=== PATIENT | male | born 1975 | race Caucasian/White ===

== ENCOUNTER 2023-10-23 21:24 | Emergency (ER) | payer MEDICAID, SELFPAY ==
[2023-10-23] VITALS (23 sets, daily range): BP systolic 105–129; BP diastolic 60–99; PULSE 83–108; RESP 16–38; TEMP 36.8; O2SAT 95–99
[2023-10-23] MEDS: Ondansetron 4 MG/2 ML VIAL IVP (22:20)
[2023-10-23 22:25] LABS: Abs Immature Grans 0.08 10^3/uL (0.0-0.06); Absolute Basophil Count 0.03 10^3/uL (0.0-0.2); Absolute Eosinophil Count 0.02 10^3/uL (0.0-0.7); Absolute Lymphocyte Count 1.37 10^3/uL (1.2-3.4); Absolute Monocyte Count 1.37 10^3/uL (0.1-0.8); Basophils % 0.2 %; Eosinophils % 0.1 %; HCT 43.1 % (40.0-50.0); HGB 14.8 g/dL (13.5-17.5); Immature Grans % 0.5 %; Lymphocytes % 8.1 %; MCH 28.1 pg (27.0-33.0); MCHC 34.3 % (32.0-36.0); MCV 82 fL (80-95); MPV 10.6 fL (8.0-11.0); Monocytes % 8.1 %; Platelet Count 319 10^3/uL (130-400); RBC 5.27 10^6/uL (4.36-5.78); RDW 14.4 % (11.8-14.1); RDW-SD 41.8 fL; WBC 16.96 10^3/uL (4.4-10.8)
[2023-10-23 22:26] LABS: Absolute Neutrophil Count 14.08 10^3/uL (1.2-6.7)
[2023-10-23] MEDS: Lactated Ringers 1,000 ML 1000 ML IV (22:32)
[2023-10-23 22:48] LABS: ALT 38 U/L (16-63); AST 24 U/L (15-37); Albumin 3.3 g/dL (3.4-5.0); Alkaline Phosphatase 93 U/L (46-116); BUN 17 mg/dL (7-18); Bilirubin, Total 0.53 mg/dL (0.2-1.0); CREATININE 1.2 mg/dL (0.70-1.30); Calcium 10.3 mg/dL (8.5-10.1); Chloride 95 mmol/L (98-107); Estimated GFR 75.53 (mL/min/1.73m2); Glucose 153 mg/dL (74-106); Magnesium 2.2 mg/dL (1.8-2.4); Potassium 3.2 mmol/L (3.5-5.1); Sodium 137 mmol/L (136-145); Total Protein 10.4 g/dL (6.4-8.2)
[2023-10-23 22:52] LABS: Salicylate < 2.8 mg/dL (<2.8)
[2023-10-23 22:55] LABS: Acetaminophen < 2 ug/mL (10-30)
[2023-10-23 23:01] LABS: ETHANOL BLOOD < 3.0 mg/dL (<10)
[2023-10-24] MEDS: Potassium Chloride 20 MEQ TABCR 40 MEQ PO (00:41)
--- NOTE | 2023-10-24 00:42 | ED.GENADUL_ITS ---
Discharge Plan Disposition Patient Disposition: Home Condition: Stable Discharge Details Clinical Impression: Opioid use disorder, Hypokalemia, Cellulitis Primary Care Provider: Luis Winston ED Provider: Elke Woodson Home Meds and New Rx's Prescriptions: No Action No Known Home Meds Discharge Instructions Instructions: Drug Misuse and Addiction (DC), Cellulitis (Skin Infection), Adult ED Additional Instructions: You were seen in the emergency department today for opioid use disorder and dehydration. In our department you have a full physical examination performed, and received fluids and potassium supplementation. We discussed various options for sobriety maintenance, and at this time we recommend that you contact [facility] at [phone]. You do have evidence of cellulitis, a skin infection, for which we provided you with Bactrim and Keflex. Please take these medications as prescribed until they are gone, even if you start to feel better. Please follow-up with your outpatient providers with any concerns, and return to the emergency department with fever chills, shortness of breath, chest pain, or any other symptoms that cause you concern. Thank you for allowing us to be part of your care. HPI General Date/Time Provider Initiated Documentation: 10/23/23 21:27 . Limitations to Documentation: no limitations . Information obtained by: patient and old records reviewed . HPI Narrative: MDM: This is a 48-year-old male patient with past medical history significant for opioid use disorder presenting for evaluation for withdrawal syndrome. My differential includes but is not limited to withdrawal syndrome, considered toxic exposure, dehydration, metabolic and electrolyte derangement, kidney injury, liver injury, anemia. I considered infection, most likely skin and soft tissue including cellulitis, abscess. The patient has no evidence on his physical examination to increase my concern for endocarditis, and is without fever or hypotension to significantly increase my concern for bacteremia or sepsis. I did have a extended shared decision-making conversation with the patient regarding sobriety maintenance resources, and the patient is strongly against initiation of any medication assisted therapy given his concern about being hooked on Suboxone. He is most concerned about dehydration, and we will provide him with IV fluids, and obtain laboratory studies to include CBC, CMP, serum tox screen. ED Course: Laboratory studies show a leukocytosis to 16 with no anemia or thrombocytopenia. Chemistry panel with some hypokalemia which was repleted orally, no kidney injury or liver dysfunction, and the serum tox screen is negative. The patient declined to provide urine and given the compelling skin and soft tissue as the etiology of his leukocytosis I do not feel that it is a necessity in this situation. We did reach out to [facility] on-call advocate, and unfortunately did not receive a call back x 2 pages. I provided the patient with their phone number and recommended that he call them in the morning to discuss sobriety maintenance resources that would be consistent with his goals for his care. I provided the patient with complete courses of Bactrim and Keflex to be taken for his cellulitis. The patient understands that he should follow-up with his primary care provider in the next few days to discuss this visit and any symptoms that change, worsen, or persist. Their care was provided for harm reduction. At this time, the patient has had a full medical evaluation and is safe for d ischarge to home. They are hemodynamically stable, ambulatory, and tolerating PO. They are understanding of the follow-up plan and return precautions. They left our facility without incident. Elke Woodson MD HPI: This is a 48-year-old male patient presenting for evaluation for withdrawal. The patient reports that he is detoxing from fentanyl, which he uses intravenously, last used 2 days ago. States that he wants to quit fentanyl and was looking for some assistance, but does not want to use any medication such as Suboxone to do so. He states that he has used these in the past and had difficulty detox syndromes from the Suboxone. He states that he is experiencing nausea, vomiting, body aches he has not been eating and drinking normally for him, states that he has some skin infection areas that he popped in the outside environment, has not taken any antibiotics for them. Currently residing at a friend's house but is concerned for his housing stability. Denies suicidal or h omicidal ideation. Exam: Gen: Awake and alert, appears uncomfortable HEENT: Non-icteric sclera, pupils equal and reactive at 4 mm Neck: Supple, no meningismus Lungs: No apparent respiratory distress, normal respiratory effort., Lung sounds clear CV: Appears well perfused, heart with tachycardic rate and rhythm with no murmurs auscultated, Abdomen: Non-distended, soft MSK: Moves 4 extremities without apparent limitation in ROM Skin: Visualized skin without rashes, cyanosis. Extensive injection boone, bilateral anterior axillary regions with cellulitis and open wounds consistent with drained abscesses in the outpatient environment, no fluctuance appreciated on this provider's examination but he does have redness and induration. Neuro: Normal Gait, no obvious focal deficits or facial asymmetry. Speaks in full, clear sentences. Psych: Appropriate for situation. Related Data Home Medications ?Medication ?Instructions ?Recorded ?Confirmed Unknown [No Known Home Meds] 06/18/14 10/23/23 Allergies Allergy/AdvReac Type Severity Reaction Status Date / Time No Known Allergies Allergy Unverified 06/18/14 10:44 General Stated Complaint: DrugWithdr/MAT MANUEL: 3 Course Vital Signs Vital signs: Vital Signs Temperature 36.8 C 10/23/23 21:20 Pulse 105 H 10/23/23 21:20 Respiratory Rate 20 10/23/23 21:20 Blood Pressure 117/99 H 10/23/23 21:20 Pulse Oximetry 99 10/23/23 21:20 Temperature 36.8 C 10/23/23 21:20 Temperature Source Tympanic 10/23/23 21:20 Pulse 83 10/23/23 23:16 Pulse 84 10/23/23 23:10 Respiratory Rate 16 10/23/23 23:10 Respiratory Effort Normal 10/23/23 21:23 Blood Pressure 123/91 H 10/23/23 23:16 Blood Pressure Mean 99 10/23/23 23:16 Blood Pressure Position Sitting 10/23/23 21:20 Pulse Oximetry 97 10/23/23 23:20 Oxygen Delivery Method Room Air 10/23/23 21:20 Oxygen Flow Rate 0 10/23/23 21:20 Lab/Test Results Lab/Test Results: Laboratory Tests Range/Units 10/23/23 10/23/23 22:10 22:24 WBC (4.4-10.8) 10^3/uL 16.96 H RBC (4.36-5.78) 10^6/uL 5.27 Hgb (13.5-17.5) g/dL 14.8 Hct (40.0-50.0) % 43.1 MCV (80-95) fL 82 MCH (27.0-33.0) pg 28.1 MCHC (32.0-36.0) % 34.3 RDW (11.8-14.1) % 14.4 H Plt Count (130-400) 10^3/uL 319 MPV (8.0-11.0) fL 10.6 Immature Gran % % 0.5 Neutrophils % % 83.0 Lymphocytes % % 8.1 Monocytes % % 8.1 Eosinophils % % 0.1 Basophils % % 0.2 Nucleated RBC % (0.0-0.3) % 0.0 Absolute Neutrophils (1.2-6.7) 10^3/uL 14.08 H Absolute Lymphocytes (1.2-3.4) 10^3/uL 1.37 Absolute Monocytes (0.1-0.8) 10^3/uL 1.37 H Absolute Eosinophils (0.0-0.7) 10^3/uL 0.02 Absolute Basophils (0.0-0.2) 10^3/uL 0.03 Sodium (136-145) mmol/L 137 Potassium (3.5-5.1) mmol/L 3.2 L Chloride (98-107) mmol/L 95 L Carbon Dioxide (21.0-32.0) mmol/L 32.0 Anion Gap (3-11) mmol/L 10.0 BUN (7-18) mg/dL 17 Creatinine (0.70-1.30) mg/dL 1.2 Est GFR (CKD-EPI 2020) (mL/min/1.73m2) 75.53 Glucose (74-106) mg/dL 153 H Calcium (8.5-10.1) mg/dL 10.3 H Magnesium (1.8-2.4) mg/dL 2.2 Total Bilirubin (0.2-1.0) mg/dL 0.53 AST (15-37) U/L 24 ALT (16-63) U/L 38 Alkaline Phosphatase (46-116) U/L 93 Total Protein (6.4-8.2) g/dL 10.4 H Albumin (3.4-5.0) g/dL 3.3 L Salicylates (<2.8) mg/dL < 2.8 Acetaminophen (10-30) ug/mL < 2 Ethyl Alcohol (<10) mg/dL < 3.0 Medical Decision Making Quality:SDOH Health Related Social Needs: No Data to Display PFSH All Active Problems (Updated 10/24/23 @ 00:47 by Elke Woodson MD) Cellulitis (Acute) Hypokalemia (Acute) Opioid use disorder (Acute) Social History Smoking/Tobacco Use Status: Current-Occasional Smoking risk assessment performed?: Yes Drug use: Current Sobriety Substance use type: opiates
[2023-10-24] MEDS: Sulfameth/Trimeth DS TAB 14 TAB PO (00:56)
[2023-10-24] MEDS: Cephalexin 500 MG CAP 14000 MG PO (00:56)
== END 2023-10-24 00:57 | disposition home or self-care (01) ==
PROVIDERS: Emergency Provider Emergency Medicine; PCP Family Medicine
DX: R11.2 Nausea with vomiting, unspecified (principal); R52 Pain, unspecified; F11.90 Opioid use, unspecified, uncomplicated; L03.111 Cellulitis of right axilla; L03.112 Cellulitis of left axilla; E87.6 Hypokalemia
CPT/HCPCS: 36415; 36573; 80053; 96361; 96374; 99284; 80320; 80329; 83735; 85025; 99283; J2405

== ENCOUNTER 2024-01-31 20:20 | Inpatient (IN) | payer MEDICAID, SELFPAY ==
[2024-01-31 20:23] VITALS: BP 138/97; PULSE 127; RESP 18; TEMP 36.9; O2SAT 96
--- NOTE | 2024-01-31 20:30 | DI.RAD_ITS ---
Exam(s) XR HUMERUS LT EXAM: XR HUMERUS LT CLINICAL HISTORY: ivda, cellulitis. TECHNIQUE: 2D digital imaging was performed of the left humerus. Two images were obtained. AP and lateral views were obtained. COMPARISON: No priors for comparison. FINDINGS: BONES: No acute fracture is present. No bony destructive lesion is seen. Visualized portion of elbow and shoulder joints are unremarkable. SOFT TISSUE: Normal. IMPRESSION: Unremarkable radiographs of the left humerus. DATA REPOSITORY: RADIATION DOSE DELIVERED:
--- NOTE | 2024-01-31 20:30 | DI.RAD_ITS ---
Exam(s) XR HUMERUS RT EXAM: XR HUMERUS RT CLINICAL HISTORY: ivda, cellulitis. TECHNIQUE: 2D digital imaging was performed of the right humerus. Two images were obtained. AP and lateral views were obtained. COMPARISON: No exams were available for comparison FINDINGS: BONES: No acute fracture is present. No bony destructive lesion is seen. Visualized portion of elbow and shoulder joints are unremarkable. SOFT TISSUE: Normal. IMPRESSION: Unremarkable radiographs of the right humerus. DATA REPOSITORY: RADIATION DOSE DELIVERED:
--- OUTSIDE RECORDS SUMMARY | 2024-01-31 20:30 | XMS_ITS | Clinical Summary ---
Author Organization [facility] Address [address] [place] [address] Care Team Providers Care Contract Technician Name Role Phone None, Provider Primary Care Provider Unavailabl e Allergies No known active allergies Medications buprenorphine-na loxone (SUBOXONE) 2-0.5 mg tablet, sublingual Place under the tongue daily. 8mg Active amoxicillin-clav ulanate (AUGMENTIN) 875-125 mg per tablet 11/20/2020 Active sulfamethoxazole -trimethoprim (BACTRIM/CO-TRIM OXAZOLE DS) 800-160 mg per tablet 11/20/2020 Active Social History Tobacco Use Types Packs/Day Years Used Date Smoking Tobacco: Never Assessed Sex and Gender Information Value Date Recorded Sex Assigned at Not on file Legal Sex Male 14:57 EDT Gender Identity Not on file Sexual Orientation Not on file Last Filed Vital Signs Vital Sign Reading Time Taken Comments Blood Pressure 116/72 12/19/2020 1605 EDT Pulse 98 12/19/2020 1605 EDT Temperature 36.7 ??C (98 ??F) 12/19/2020 1605 EDT sca nner Respiratory Rate 16 12/19/2020 1605 EDT Oxygen Saturation 99% 12/19/2020 1605 EDT Inhaled Oxygen Concentration - - Weight - - Height - - Body Mass Index - - Plan of Treatment Health Maintenance Due Date Last Done Comments Hepatitis C Screen 1975 Hepatitis B Vaccine (1 of 3 - 19+ 3-dose series) 05/05 COVID-19 Vaccine (2023- season) 2023 Insurance [employer]OS [employer] COMP Comp GL Care Teams Contract Technician Relationship Specialty Start Date End Date None, Provider PCP - General 11/19/20
--- OUTSIDE RECORDS SUMMARY | 2024-01-31 20:30 | XMS_ITS | Encounter Summary ---
Author Organization [facility] Address [address] [place] [address] Care Team Providers Care Development Mgr Name Role Phone None, Provider Primary Care Provider Unavailabl e Reason for Visit * Reason Onset Date Comments Appointment Related 12/29/2020 Encounter Details Date Type Department Care Team (Late st Contact Info) Description 12/29/2020 Telephone [facility] - [facility] [place] Occupational Medicine [facility] [address] [place] [address] Amanda Reddy PA-C [address] [place] [address] Appointment Related Social History Tobacco Use Types Packs/Day Years Used Date Smoking Tobacco: Never Assessed Sex and Gender Information Value Date Recorded Sex Assigned at Not on file Legal Sex Male 14:57 EDT Gender Identity Not on file Sexual Orientation Not on file documented as of this encounter Miscellaneous Notes * Telephone Encounter - Kim Hsu - 12/29/2020 1140 EDT LVM #1 to reschedule the appointment missed on 12/19/20. documented in this encounter Plan of Treatment Not on file documented as of this encounter Visit Diagnoses Not on filedocumented in this encounter Care Teams Development Mgr Relationship Specialty Start Date End Date None, Provider PCP - General 11/19/20 documented as of this encounter
--- OUTSIDE RECORDS SUMMARY | 2024-01-31 20:30 | XMS_ITS | Encounter Summary ---
Author Organization [facility] Address [address] [place] [address] Care Team Providers Care Concrete Handler Name Role Phone None, Provider Primary Care Provider Unavailabl e Reason for Visit * Reason Comments Letter for School/Work Encounter Details Date Type Department Care Team ([facility] st Contact Info) Description 12/19/2020 15:45 EDT Walk-In [facility] [address] [place] [address] Johanna Melgar PA-C [address] [place] [address] Abscess (Primary Dx) Social History Tobacco Use Types Packs/Day Years Used Date Smoking Tobacco: Never Assessed Sex and Gender Information Value Date Recorded Sex Assigned at Not on file Legal Sex Male 14:57 EDT Gender Identity Not on file Sexual Orientation Not on file documented as of this encounter Last Filed Vital Signs Vital Sign Reading Time Taken Comments Blood Pressure 116/72 12/19/2020 1605 EDT Pulse 98 12/19/2020 1605 EDT Temperature 36.7 ??C (98 ??F) 12/19/2020 1605 EDT sca nner Respiratory Rate 16 12/19/2020 1605 EDT Oxygen Saturation 99% 12/19/2020 1605 EDT Inhaled Oxygen Concentration - - Weight - - Height - - Body Mass Index - - documented in this encounter Patient Instructions * Patient Instructions* Johanna Melgar PA-C - 12/19/2020 15:45 EDT Return to full duty. Follow-up for elbow pain, increased swelling, redness or any worrisome symptoms. documented in this encounter Progress Notes * Terri Nava - 12/19/2020 1541 EDT CC/HPI: Patient injured his elbow 11/20 at work. He had surgery and now needs a letter to return to work. Covid Screening: In the last 72 hours, has the patient had: New or unusual cough, shortness of breath, new nasal congestion, sore throat, fever, chills, body aches, or new loss of taste or smell without a reasonable alternative diagnosis*? (If yes, assign patient to ARC schedule) NO In the past 14 days, has the patient had a confirmed close Covid exposure (<6ft for > 15mins in 24hr period)? NO In the past 14 days, has the patient returned from international travel? NO Is the patient fully Covid vaccinated? (If close exposure or international travel but fully vaccinated, remains NRC. If close exposure or international travel and unvaccinated, assign to ARC) NO *may be determined by RN or in discussion with available provider (COMMERCIAL TELLER's and CCA's can defer to Charge Nurse to complete triage when appropriate) PCP: Provider None * Johanna Melgar PA-C - 12/19/2020 1543 EDT [facility] Chief Complaint(s): Letter for School/Work HPI: This is a 45yo male who presents to requesting a note to return to work. The patient is s/p incision and drainage right elbow abscess on 11/22. He was referred to occupational medicine and has missed X2 appointments stating it is too hard for [place] to get [place] for [place]. He has been on light duty at work and feels he is able to return to full duty. Denies pain. States that elbow is chronically swollen. I have reviewed current problem list, current medications and allergies ROS: See HPI Review of Systems Constitutional: Negative for chills and fever. Objective: Examination: Vitals: BP 116/72 (BP Cuff Location: Left arm, BP Patient Position: Sitting, BP Cuff Sizes: Adult, long) Pulse 98 Temp 36.7 ??C (98 ??F) Comment: scanner Resp 16 SpO2 99% Physical Exam Vitals and nursing note reviewed. HENT: Head: Normocephalic and atraumatic. Musculoskeletal: Comments: Examination of the right elbow reveals a small papule antecubital fossa without tenderness. No surrounding erythema. Mild edema of the medial elbow - reportedly chronic. FROM. Distal sensation intact. 2+radial pulse. Skin: General: Skin is warm and dry. Neurological: Mental Status: He is alert and oriented to person, place, and time. Procedures Assessment & Plan: 1. Abscess 45yo male s/p I&D right antecubital abscess in the ED on 11/19 returns to requesting a note to return to full duty at work. He was previously referred to occupational medicine for this clearance, however has missed two appointments and reports that it is just too hard to get to [place]. I have cleared the patient to return to full duty with strict instructions to follow-up for a recurrence of the symptoms. See patient instructions. Questions and concerns were answered. Patient expressed understanding of plan. documented in this encounter Plan of Treatment Not on file documented as of this encounter Visit Diagnoses Diagnosis Abscess- Primary Cellulitis and abscess of unspecified site documented in this encounter Care Teams Concrete Handler Relationship Specialty Start Date End Date None, Provider PCP - General 11/19/20 documented as of this encounter
--- OUTSIDE RECORDS SUMMARY | 2024-01-31 20:30 | XMS_ITS | Encounter Summary ---
Author Organization [facility] Address [address] [place] [address] Care Team Providers Care Flask Handler Name Role Phone None, Provider Primary Care Provider Unavailabl e Encounter Details Date Type Department Care Team (Late st Contact Info) Description 11/19/2020 Results Only [facility] - Main [address] [address] Willian Chaudhry PA-C [address] [place] [phone] Social History Tobacco Use Types Packs/Day Years Used Date Smoking Tobacco: Never Assessed Sex and Gender Information Value Date Recorded Sex Assigned at Not on file Legal Sex Male 14:57 EDT Gender Identity Not on file Sexual Orientation Not on file documented as of this encounter Plan of Treatment Not on file documented as of this encounter Procedures Procedure Name Priority Date/Time Associated Diagnosis Comments ROUTINE CULTURE - [facility] Routine 18:25 EDT BLOOD CULTURE - [facility] Routine 11/19/2020 17:56 EDT COMPLETE BLOOD COUNT WITH DIFFERENTIAL (AUTO) Routine 11/19/2020 16:44 EDT C REACTIVE PROTEIN Routine 11/19/2020 16 :43 EDT COMPREHENSIVE METABOLIC PANEL (CMP) Routine 11/19/2020 16:43 EDT BLOOD CULTURE - [facility] Routine 11/19/2020 16:30 EDT LACTIC ACID SEPSIS REFLEX - CV Routine 11/19/2020 16:20 EDT documented in this encounter Results * ROUTINE CULTURE - [facility] (11/19/2020 18:25 EDT) KLEB PHEUMONIAE SSP - CV KLEB PNEUMONIAE SSP PNEUMONIAE 11/22/2020 7:52 EDT [facility] QUANT - CV FEW 11/22/2020 7:52 EDT [facility] USUAL SKIN NICHOLE - CV USF 11/22/2020 7:52 EDT [facility] QUANT - [facility] MODERATE 11/22/2020 7:52 EDT [facility] Arm 11/19/2020 18:2 5 EDT 11/19/2020 19:04 EDT Comment:RAR Narrative [facility] - 11/22/2020 7:52 EDT Swab Source/Specimen Description: right ac abscess Organism Antibiotic Method Susceptibility Kleb pneumoniae ssp pneumoniae Ampicillin Sulbactam GRAM NEGATIVE SUSCEPTIBILITY - [facility] 4: Susceptible Kleb pneumoniae ssp pneumoniae Ampicillin GRAM NEGATIVE SUSCEPTIBILITY - [facility] 16: Resistant Kleb pneumoniae ssp pneumoniae Amoxicillin Clavulanic acid GRAM NEGATIVE SUSCEPTIBILITY - [facility] 8: Susceptible Kleb pneumoniae ssp pneumoniae Ceftriaxone ([facility] Conversion) GRAM NEGATIVE SUSCEPTIBILITY - [facility] <=1: Susceptible Kleb pneumoniae ssp pneumoniae Ciprofloxacin GRAM NEGATIVE SUSCEPTIBILITY - [facility] <=0.25: Susceptible Kleb pneumoniae ssp pneumoniae Cefepime GRAM NEGATIVE SUSCEPTIBILITY - [facility] <=1: Susceptible Kleb pneumoniae ssp pneumoniae Ertapenem GRAM NEGATIVE SUSCEPTIBILITY - [facility] <=0.5: Susceptible Kleb pneumoniae ssp pneumoniae Gentamicin GRAM NEGATIVE SUSCEPTIBILITY - [facility] <=1: Susceptible Kleb pneumoniae ssp pneumoniae Imipenem GRAM NEGATIVE SUSCEPTIBILITY - [facility] <=0.25: Susceptible Kleb pneumoniae ssp pneumoniae Levofloxacin GRAM NEGATIVE SUSCEPTIBILITY - [facility] <=0.12: Susceptible Kleb pneumoniae ssp pneumoniae Piperacillin Tazobactam GRAM NEGATIVE SUSCEPTIBILITY - [facility] <=4: Susceptible Kleb pneumoniae ssp pneumoniae Trimethoprim-Sulfameth oxazole GRAM NEGATIVE SUSCEPTIBILITY - [facility] <=20: Susceptible Kleb pneumoniae ssp pneumoniae Tobramycin GRAM NEGATIVE SUSCEPTIBILITY - [facility] <=1: Susceptible Comment:R ARM INJ? us Willian Hare PA-C CHEMISTRY & BLOOD GAS ORDERABLES Edited Result - Final Performing Organization Address City/[facility]/ZIP Co de Phone Number [facility] [address] [place] [address] * BLOOD CULTURE - [facility] (11/19/2020 17:56 EDT) BLOOD CULTURE - [facility] 11/25/2020 10:48 EDT [facility] BLOOD CULTURE - [facility] NO GROWTH AT 5 DAYS 11/25/2020 10:48 EDT [facility] Blood 11/19/2020 17:5 6 EDT 11/19/2020 17:56 EDT Comment:PERIP us Willian Hare PA-C CHEMISTRY & BLOOD GAS ORDERABLES Edited Result - Final Performing Organization Address [facility] Co de Phone Number [facility] [address] [place] [phone] * (ABNORMAL) COMPLETE BLOOD COUNT WITH DIFFERENTIAL (AUTO) (11/19/2020 16:44 EDT) Pathologist [facility] ABSOLUTE NEUTROPHIL COUN - [facility] 10.9(H) 2.2 - 8.85 10e3/uL 11/19/2020 17:01 EDT [facility] BASO # - [facility] 0.03 0.01 - 0.11 10e/uL [facility]2020 [facility] 0 0 - 2 % 11/19/2020 17:01 EDT [facility] EOS # - [facility] 0.12 0.03 - 0.61 10e3/ul 11/19/2020 17:01 EDT [facility] EOS % - [facility] 1 0 - 5 % 11/19/2020 17:01 EDT [facility] GRAN % - [facility] 85.1(H) 40 - 80 % [facility] HEMAT[facility]IT - [facility] 36.3(L) 39.5 - 50.2 % 11/19/2020 17:01 EDT [facility] HEMOGLOBIN - CV 12.1(L) 13.8 - 17.3 g/dl 11/19/2020 17:01 [facility] IG# - [facility] 0.05 0 - 0.7 10e3/uL 11/19/2020 17:01 [facility] IG% - [facility] 0.4 0 - 0.9 % 11/19/2020 17:01 [facility] LYMPH # - [facility] 0.8(L) 1.09 - 3.3 10e3/ul 11/19/2020 17:01 [facility] LYMPH% - [facility] 6.1(L) 20 - 40 % 11/19/2020 17:01 [facility] MEAN CORPUSCULAR HGB - [facility] 28.4 27.6 - 33.0 pg 11/19/2020 17:01 [facility] MEAN CORPUSCULAR HGB CONC - [facility] 33.3 32.8 - 36.4 g/dL 11/19/2020 17:01 [facility] MEAN CELL VOLUME - [facility] 85.2 81 - 95 fl 11/19/2020 17:01 [facility] MONO # - [facility] 0.9(H) 0.1 - 0.8 10e3/uL 11/19/2020 17:01 [facility] MONO% - [facility] 7.3 0 - 12 % 11/19/2020 17:01 [facility] PLATELET COUNT 226 141 - 377 10e3/ul 11/19/2020 17:01 [facility] RED BLOOD COUNT - [facility] 4.26(L) 4.36 - 5.78 10e6/ul 11/19/2020 17:01 [facility] RED CELL DISTRI WIDTH - [facility] 12.8 <14.2 % 11/19/2020 17:01 [facility] WHITE BLOOD COUNT - [facility] 12.8(H) 4.0 - 10.4 10e3/ul 11/19/2020 17:01 [facility] 11/19/2020 16:4 4 EDT 11/19/2020 16:44 EDT us Willian Chaudhry PA-C HEMATOLOGY & PF4 ORDERABLES Yenni l Result [facility] [address] [place] [address] * (ABNORMAL) C REACTIVE PROTEIN (11/19/2020 16:43 EDT) Pathologist [facility] C-Reactive Protein 82.1(H) <10.0 mg/L 11/19/2020 17:00 EDT [facility] 11/19/2020 16:4 3 EDT 11/19/2020 16:43 EDT us Willian MAURICE-C CHEMISTRY & BLOOD GAS ORDERABLES Final Result Performing Organization Address [facility] Co de Phone Number [facility] [address] [place] [address] * (ABNORMAL) COMPREHENSIVE METABOLIC PANEL (CMP) (11/19/2020 16:43 EDT) Pathologist [facility] Albumin % 3.4 3.4 - 4.9 g/dL 11/19/2020 17:21 EDT [facility] ALKALINE PHOSPHATASE - [facility] 67 38 - 126 U/L 11/19/2020 17:21 EDT [facility] BILIRUBIN TOTAL 0.4 0.2 - 1.3 mg/dL 11/19/2020 17:21 EDT [facility] BUN - [facility] 7(L) 10 - 26 mg/dL 11/19/2020 17:21 EDT [facility] CALCIUM - [facility] 8.1(L) 8.5 - 10.5 mg/dL 11/19/2020 17:00 EDT [facility] Chloride 99 96 - 110 mmol/L 11/19/2020 17:00 EDT [facility] CO2 Total 24 21 - 32 mEq/L [facility]2020 [facility]ATIN[facility] 0.59(L) 0.66 - 1.25 mg/dL 11/19/2020 17:00 EDT [facility] eGFR >60 11/19/2020 17:00 EDT [facility] Comment: Chronic renal impairment is defined as GFR <60 Multiply result by 1.210 for patients. Anion Gap 10 0 - 18 11/19/2020 17:00 EDT [facility] GLUCOSE - [facility] 107(H) 70 - 100 mg/dL 11/19/2020 17:00 EDT [facility] Potassium 3.9 3.5 - 5.0 mEq/L 11/19/2020 17:21 EDT [facility] Sodium 133(L) 136 - 145 mEq/L 11/19/2020 17:00 EDT [facility] TOTAL PROTEIN - [facility] 6.8 6.2 - 8.2 gm/dL 11/19/2020 17:21 EDT [facility] SGOT/AST - [facility] 20 17 - 59 U/L 11/19/2020 17:21 EDT [facility] SGPT/ALT - [facility] 18 0 - 50 U/L 17:00 EDT [facility] 11/19/2020 16:4 3 EDT 11/19/2020 16:43 EDT us Willian Hare PA-C CHEMISTRY & BLOOD GAS ORDERABLES Final Result Performing Organization Address City/State/[facility] Co de Phone Number [facility] [address] [place] [phone] * BLOOD CULTURE - [facility] (11/19/2020 16:30 EDT) BLOOD CULTURE - [facility] 11/25/2020 10:48 EDT [facility] BLOOD CULTURE - [facility] NO GROWTH AT 5 DAYS 11/25/2020 10:48 EDT [facility] Blood 11/19/2020 16:3 0 EDT 11/19/2020 16:55 EDT Comment:PERIP us Willian Hare PA-C CHEMISTRY & BLOOD GAS ORDERABLES Edited Result - Final Performing Organization Address City/[facility]/ZIP Co de Phone Number [facility] [address] [place] [address] * LACTIC ACID SEPSIS REFLEX - [facility] (11/19/2020 16:20 EDT) LACTIC ACID - [facility] 0.7 <2.0 mmol/L 11/19/2020 16:46 EDT [facility] 11/19/2020 16:2 0 EDT 11/19/2020 16:30 EDT us Willian Chaudhry PA-C CHEMISTRY & BLOOD GAS ORDERABLES Final Result Performing Organization Address [facility] Co de Phone Number [facility] [address] [place] [address] documented in this encounter Visit Diagnoses Not on filedocumented in this encounter Care Teams Flask Handler Relationship Specialty Start Date End Date None, Provider PCP - General 11/19/20 documented as of this encounter
--- OUTSIDE RECORDS SUMMARY | 2024-01-31 20:30 | XMS_ITS | Encounter Summary ---
Author Organization [facility] Address [address] [place] [address] Care Team Providers Care Rotary Peel Oven Tender Name Role Phone None, Provider Primary Care Provider Unavailabl e Reason for Visit * Reason Comments Arm Swelling Encounter Details Date Type Department Care Team (Late st Contact Info) Description 11/19/2020 15:00 EDT Walk-In [facility] [address] [place], [place] [id number] Johanna Melgar PA-C [address] [place] [phone] Cutaneous abscess of right upper extremity (Primary Dx) Social History Tobacco Use Types Packs/Day Years Used Date Smoking Tobacco: Never Assessed Sex and Gender Information Value Date Recorded Sex Assigned at Not on file Legal Sex Male 14:57 EDT Gender Identity Not on file Sexual Orientation Not on file documented as of this encounter Last Filed Vital Signs Vital Sign Reading Time Taken Comments Blood Pressure 118/70 11/19/2020 1523 EDT Pulse 113 11/19/2020 1523 EDT Temperature 38.1 ??C (100.5 ??F) 11/19/2020 1523 EDT Respiratory Rate 20 11/19/2020 1523 EDT Oxygen Saturation 100% 11/19/2020 1523 EDT Inhaled Oxygen Concentration - - Weight - - Height - - Body Mass Index - - documented in this encounter Patient Instructions * Patient Instructions* Johanna Melgar PA-C - 11/19/2020 15:00 EDT Go directly to the ED for further evaluation. documented in this encounter Progress Notes * Da Basurto RN - 11/19/2020 1500 EDT CC/HPI: Patient reports two days of right arm swelling. Covid Screening: In the last 72 hours, has the patient had: New or unusual cough, shortness of breath, new nasal congestion, sore throat, fever, chills, body aches, or new loss of taste or smell without a reasonable alternative diagnosis*? (If yes, assign patient to ARC schedule) No In the past 14 days, has the patient had a confirmed close Covid exposure (<6ft for > 15mins in 24hr period)? No In the past 14 days, has the patient returned from international travel? No Is the patient fully Covid vaccinated? (If close exposure or international travel but fully vaccinated, remains NRC. If close exposure or international travel and unvaccinated, assign to ARC) Patient is not vaccinated Assessed patient's safety at home on 11/19/20. Patient reports that he feels safe at home. DA BASURTO RN 11/19/20 15:18 PCP: Provider None * Johanna Melgar PA-C - 11/19/2020 1500 EDT [facility] Chief Complaint(s): Arm Swelling HPI: This is a 45-year-old male who presents to express care reporting a large abscess of the right antecubital region that was noticed 2 days ago and has been worsening. Patient denies recent IV drug use. He did use a needle to puncture the area of swelling this morning and expressed a small amount of pus. Has had increased discomfort since doing this. Does report swelling of the forearm and hand. Has had a fever since last evening. Last took ibuprofen at noon today. Denies history of MRSA infection in the past. Denies chest pain or shortness of breath. I have reviewed current problem list, current medications and allergies ROS: Review of Systems Constitutional: Positive for fever. Negative for chills. Objective: Examination: Vitals: BP 118/70 Pulse (!) 113 Temp 38.1 ??C (100.5 ??F) (Skin) Resp 20 SpO2 100% Physical Exam Vitals and nursing note reviewed. Constitutional: General: He is not in acute distress. Appearance: He is ill-appearing. He is not toxic-appearing or diaphoretic. HENT: Head: Normocephalic and atraumatic. Cardiovascular: Rate and Rhythm: Regular rhythm. Tachycardia present. Heart sounds: Normal heart sounds. Pulmonary: Comments: tachypneic Musculoskeletal: Comments: Examination of the right upper extremity reveals a large area of erythematous swelling 5cm in size antecubital space. There is fluctuance and tenderness to palpation. No lymphangitic streaking. 2+radial pulse. Moderate edema from the elbow to the right hand. Decreased ROM of the elbow due to pain. Neurological: Mental Status: He is alert and oriented to person, place, and time. Procedures Assessment & Plan: 1. Cutaneous abscess of right upper extremity 45yo febrile, tachypneic, tachycardic male with large right antecubital abscess and moderate extremity edema. DDX includes abscess, DVT, sepsis. Will refer to the ED for further evaluation. ED chargeRN is notified. See patient instructions Questions and concerns were answered. Patient expressed understanding of plan. documented in this encounter Plan of Treatment Not on file documented as of this encounter Visit Diagnoses Diagnosis Cutaneous abscess of right upper extremity- Primary Cellulitis and abscess of upper arm and forearm documented in this encounter Historical Medications * This list may reflect changes made after this encounter. buprenorphine-nal oxone (SUBOXONE) 2-0.5 mg tablet, sublingual Place under the tongue daily. 8mg added in this encounter Care Teams Rotary Peel Oven Tender Relationship Specialty Start Date End Date None, Provider PCP - General 11/19/20 documented as of this encounter
--- OUTSIDE RECORDS SUMMARY | 2024-01-31 20:30 | XMS_ITS | Encounter Summary ---
Author Organization [facility] Address [address] [place] [address] Care Team Providers Care Reeler Operator Name Role Phone None, Provider Primary Care Provider Unavailabl e Encounter Details Date Type Department Care Team (Late st Contact Info) Description 11/19/2020 Results Only Imaging [facility] Radiology Results [address] [place] [address] Willian Chaudhry PA-C [address] [place] [phone] Social History Tobacco Use Types Packs/Day [...] Procedure Name Priority Date/Time Associated Diagnosis Comments CT UPPER EXTREMITY W WO CONTRAST 11/19/2020 18:41 EDT documented in this encounter Results * CT UPPER EXTREMITY W WO CONTRAST (11/19/2020 18:41 EDT) Anatomical Region Laterality Modality Upper Extremities Other 11/19/2020 18:4 0 EDT Narrative 11/19/2020 18:41 EDT ? EXAM: CAT SCAN/UPPER EXTREMITY WITH CONT. EX. D/ (1722) ? CLINICAL INFORMATION: ? right upper arm abscess ? PROCEDURE INFORMATION: ? Exam: CT Right Upper Extremity With Contrast, Elbow ? Exam date and time: 11/19/2020 4:14 PM ? Age: 45 years old ? Clinical indication: Swelling and other: Redness; Elbow; Right; ? Patient HX: Bb placed on bump - RT antecubital area; Additional ? info: Right upper arm abscess (elbow) ? TECHNIQUE: ? Imaging protocol: CT of the Right upper extremity with ? intravenous contrast was performed. Exam focused on the elbow. ? Radiation optimization: All CT scans at this facility use at ? least one of these dose optimization techniques: automated ? exposure control; mA and/or kV adjustment per patient size ? (includes targeted exams where dose is matched to clinical ? indication); or iterative reconstruction. ? Contrast material: OMNI 350; Contrast volume: 100 ml; Contrast ? route: INTRAVENOUS (IV); ? COMPARISON: ? No relevant prior studies available. ? FINDINGS: ? Bones/joints: Normal. No acute fracture or dislocation. ? Soft tissues: ??There is a 4.2 x 5.3 cm diameter irregular shaped ? rim enhancing fluid collection containing small amount gas ? consistent with an abscess located within the antecubital fossa. ?This extends to the immediate subcutaneous surface posteriorly ? at the level of the elbow where a skin marker was placed. ??The ? brachial artery runs in close proximity to the deep margin of ? the abscess. ??No major blood vessels are seen between the skin ? and the area of the abscess closest to the BB. ??There is ? nonspecific edema within adjacent subcutaneous tissue. ? IMPRESSION: ? Large abscess of the antecubital fossa measuring approximately ? 4.2 x 5.3 cm as described above. ??Diffuse subcutaneous edema is ? also present which may indicate cellulitis. ? REPORT SIGNED IN OTHER VENDOR SYSTEM 11/19/2020 ?Reported By: Vito Tidwell MD ? CC: ? Transcribed Date/Time: 11/19/2020 (1840) ? Proposal Analyst: ? Printed Date/Time: 11/19/2020 (1840) ? PAGE 1 ? Signed Report ? Procedure Note Vito Tidwell MD - 11/19/2020 EXAM: CAT SCAN/UPPER EXTREMITY WITH CONT. EX. D/ (1722) CLINICAL INFORMATION: right upper arm abscess PROCEDURE INFORMATION: Exam: CT Right Upper Extremity With Contrast, Elbow Exam date and time: 11/19/2020 4:14 PM Age: 45 years old Clinical indication: Swelling and other: Redness; Elbow; Right; Patient HX: Bb placed on bump - RT antecubital area; Additional info: Right upper arm abscess (elbow) TECHNIQUE: Imaging protocol: CT of the Right upper extremity with intravenous contrast was performed. Exam focused on the elbow. Radiation optimization: All CT scans at this facility use at least one of these dose optimization techniques: automated exposure control; mA and/or kV adjustment per patient size (includes targeted exams where dose is matched to clinical indication); or iterative reconstruction. Contrast material: OMNI 350; Contrast volume: 100 ml; Contrast route: INTRAVENOUS (IV); COMPARISON: No relevant prior studies available. FINDINGS: Bones/joints: Normal. No acute fracture or dislocation. Soft tissues: There is a 4.2 x 5.3 cm diameter irregular shaped rim enhancing fluid collection containing small amount gas consistent with an abscess located within the antecubital fossa. This extends to the immediate subcutaneous surface posteriorly at the level of the elbow where a skin marker was placed. The brachial artery runs in close proximity to the deep margin of the abscess. No major blood vessels are seen between the skin and the area of the abscess closest to the BB. There is nonspecific edema within adjacent subcutaneous tissue. IMPRESSION: Large abscess of the antecubital fossa measuring approximately 4.2 x 5.3 cm as described above. Diffuse subcutaneous edema is also present which may indicate cellulitis. REPORT SIGNED IN OTHER VENDOR SYSTEM 11/19/2020 Reported By: Vito Tidwell MD CC: Transcribed Date/Time: 11/19/2020 (1840) Proposal Analyst: Printed Date/Time: 11/19/2020 (1840) PAGE 1 Signed Report Willian Chaudhry PA-C IMG CT ORDERABLES Final Result documented in this encounter Visit Diagnoses Not on filedocumented in this encounter Care Teams Reeler Operator Relationship Specialty Start Date End Date None, Provider PCP - General 11/19/20 documented as of this encounter
--- OUTSIDE RECORDS SUMMARY | 2024-01-31 20:30 | XMS_ITS | Referral Summary ---
Author Organization [facility] Address [address] [place] [address] Care Team Providers Care Hydrometeorology Teacher Name Role Phone None, Provider Primary Care [...] Mass Index - - Plan of Treatment Not on file Insurance [employer] [place] [address] [place] [address] [place] [address] Care Teams Hydrometeorology Teacher Relationship Specialty Start Date End Date None, Provider PCP - General 11/19/20
--- OUTSIDE RECORDS SUMMARY | 2024-01-31 20:30 | XMS_ITS | Encounter Summary ---
Author Organization [facility] Address [address] [place] [address] Care Team Providers Care [employer] Name Role Phone None, Provider Primary Care Provider Unavailabl e Reason for Visit * Reason Comments Other drain removal Encounter Details Date Type Department Care Team (Late st Contact Info) Description 11/22/2020 16:45 EDT Walk-In [facility] [address], [place] [id number] Lorna De La Fuente PA-C [address] [facility] [address] [place], [place] [id number] Abscess of arm, right (Primary Dx) Social History Tobacco Use Types Packs/Day Years Used Date Smoking Tobacco: Never Assessed Sex and Gender Information Value Date Recorded Sex Assigned at Not on file Legal Sex Male 14:57 EDT Gender Identity Not on file Sexual Orientation Not on file documented as of this encounter Last Filed Vital Signs Vital Sign Reading Time Taken Comments Blood Pressure 130/82 11/22/2020 1649 EDT Pulse 88 11/22/2020 1649 EDT Temperature 36.8 ??C (98.2 ??F) 11/22/2020 1649 EDT Respiratory Rate 18 11/22/2020 1649 EDT Oxygen Saturation 98% 11/22/2020 1649 EDT Inhaled Oxygen Concentration - - Weight - - Height - - Body Mass Index - - documented in this encounter Progress Notes * Magdalene Ball, RN - 11/22/2020 1645 EDT CC/HPI: Patient states he had cellulitis in elbow and needs a drain removed. Reports Saturday at [facility] Covid Screening: In the last 72 hours, has the patient had: New or unusual cough, shortness of breath, new nasal congestion, sore throat, fever, chills, body aches, or new loss of taste or smell without a reasonable alternative diagnosis*? (If yes, assign patient to ARC schedule) In the past 14 days, has the patient had a confirmed close Covid exposure (<6ft for > 15mins in 24hr period)? In the past 14 days, has the patient returned from international travel? Is the patient fully Covid vaccinated? (If close exposure or international travel but fully vaccinated, remains NRC. If close exposure or international travel and unvaccinated, assign to ARC) *may be determined by RN or in discussion with available provider (FRINGE MAKER's and CCA's can defer to Charge Nurse to complete triage when appropriate) PCP: Provider None * Lorna De La Fuente PA-C - 11/22/2020 1645 EDT [facility] Initial Visit Note Subjective: Chief Complaint(s): Other (drain removal) HPI: Misha Trent is a 45 y.o. year-old male that I am seeing in after a reported work-place injury. 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 paperwork ROS: Review of Systems Constitutional: Negative for fever. Skin: Patient here to have drain removed from where his abscess was I&D Objective: Examination: Vitals: oral temperature is 36.8 ??C (98.2 ??F). His blood pressure is 130/82 and his pulse is 88. His respiration is 18 and oxygen saturation is 98%. There is no height or weight on file to calculate BMI. Physical Exam Vitals reviewed. Constitutional: General: He is not in acute distress. Appearance: He is not ill-appearing. Cardiovascular: Rate and Rhythm: Normal rate. Pulmonary: Effort: Pulmonary effort is normal. No respiratory distress. Skin: Comments: Right antecubital fossa there is a pencot drain in place that is holding the 2 small incisions open to allow for more drainage, drain was removed with tweezers and suture scissors without complication Neurological: Mental Status: He is alert. Assessment & Plan: 1. Abscess of arm, right - AMB REFERRAL TO OCCUPATIONAL MEDICINE; Future Patient The reason for visit IS related to reported mechanism of injury. Patient was referred to occupational med to ensure complete resolution of the remaining wound, paperwork was scanned into patient chart, patient should keep area clean and dry, occupational med will resume care when scheduled, patient is to return to [facility] if any further redness or drainage increases, patient verbalized understanding and agrees to POC Procedures documented in this encounter Plan of Treatment Not on file documented as of this encounter Visit Diagnoses Diagnosis Abscess of arm, right- Primary Cellulitis and abscess of upper arm and forearm documented in this encounter Historical Medications * This list may reflect changes made after this encounter. Medication Sig Dispense Quantity Refills Last Filled Start D ate End Date sulfamethoxazole-trimet hoprim (BACTRIM/CO-TRIMOXAZOLE DS) 800-160 mg per tablet 11/20/2020 amoxicillin-clavulanate (AUGMENTIN) 875-125 mg per tablet 11/20/2020 added in this encounter Care Teams [employer] Relationship Specialty Start Date End Date None, Provider PCP - General 11/19/20 documented as of this encounter
[2024-01-31] MEDS: Lidocaine 1% Multi-Dose 50 ML VIAL IJ (21:46)
[2024-01-31 22:05] LABS: Abs Immature Grans 0.12 10^3/uL (0.0-0.06); Absolute Basophil Count 0.07 10^3/uL (0.0-0.2); Absolute Eosinophil Count 0.26 10^3/uL (0.0-0.7); Absolute Lymphocyte Count 2.15 10^3/uL (1.2-3.4); Absolute Monocyte Count 1.08 10^3/uL (0.1-0.8); Absolute Neutrophil Count 14.65 10^3/uL (1.2-6.7); Basophils % 0.4 %; Eosinophils % 1.4 %; HCT 35.4 % (40.0-50.0); HGB 11.3 g/dL (13.5-17.5); Immature Grans % 0.7 %; Lymphocytes % 11.7 %; MCH 26.2 pg (27.0-33.0); MCHC 31.9 % (32.0-36.0); MCV 82 fL (80-95); MPV 9.9 fL (8.0-11.0); Monocytes % 5.9 %; Neutrophils % 79.9 %; Platelet Count 385 10^3/uL (130-400); RBC 4.32 10^6/uL (4.36-5.78); RDW 14.2 % (11.8-14.1); RDW-SD 42.4 fL; WBC 18.34 10^3/uL (4.4-10.8)
[2024-01-31 22:06] LABS: ESR 78 mm/hr (0-15)
--- NOTE | 2024-01-31 22:15 | DI.RAD_ITS ---
Exam(s) XR CHEST 2V PA LATERAL EXAM: XR CHEST 2V PA LATERAL CLINICAL HISTORY: right rib pain, fall TECHNIQUE: 2D digital imaging was performed of the chest. Three images were obtained. PA and later al views were obtained. COMPARISON: No exams were available for comparison FINDINGS: MEDIASTINUM: Normal. HEART: Normal. PULMONARY VASCULATURE: Normal. LUNGS: The lungs are hyperinflated with flattened diaphragms suggesting underlying COPD. No focal co nsolidations. PLEURAL SPACE: No pleural effusion or pneumothorax. BONE:Within normal limits for the patient's age. OTHER FINDINGS:Normal. IMPRESSION: No acute pulmonary findings. DATA REPOSITORY: RADIATION DOSE DELIVERED:
--- NOTE | 2024-01-31 22:18 | W.ED.GENAD ---
Discharge Plan Disposition Patient Disposition: Admit to [facility] Discharge Details Chief Complaint: Cellulitis Clinical Impression: Cellulitis and abscess of upper extremity, Sepsis, Opioid use disorder, Active intravenous drug use Admit Date/Time: 01/31/24 23:14 Admit Provider: Андрей Peters Attending Provider: Андрей Peters Primary Care Provider: Unknown,Unknown ED Provider: Alyssia Owusu Discharge Data Discharge Date/Time-TO BE ENTERED AT DEPARTURE: 01/31/24 23:56 HPI General Date/Time Provider Initiated Documentation: 01/31/24 20:23. HPI Narrative: This 48-year-old male presents with bilateral arm abscesses and cellulitis with history of IV drug abuse. Last used fentanyl yesterday. Is interested in detox and resources. He has not been set up with community connections or [facility] in the past and would very much like to be connected with these resources. He denies any fever or chills. He states he drained abscesses in his left arm yesterday. He denies history of HIV or hepatitis C. He denies any chest pain or shortness of breath. States he has a history of cellulitis in the past. Related Data Home Medications ?Medication ?Instructions ?Recorded ?Confirmed Unknown [No Known Home Meds] 06/18/14 01/31/24 Allergies Allergy/AdvReac Type Severity Reaction Status Date / Time No Known Allergies Allergy Unverified 01/31/24 20:29 General Stated Complaint: Cellulitis MANUEL: 3 Exam Narrative Exam Narrative: Alert and oriented 48-year-old male in no acute distress, sinus tachycardia, pupils equal round reactive to light and accommodation, lungs clear to auscultation, sinus tachycardia, bilateral upper extremities with multiple abscesses and excoriations with drainage, cellulitis extensively to the left upper extremity with draining abscesses, right upper extremity with axillary abscess and mid humeral abscess. Neurovascularly intact, no Janeway lesions. No murmur. Course Vital Signs Vital signs: Vital Signs Temperature 36.9 C 01/31/24 20:23 Pulse 127 H 01/31/24 20:23 Respiratory Rate 18 01/31/24 20:23 Blood Pressure 138/97 H 01/31/24 20:23 Pulse Oximetry 96 01/31/24 20:23 Temperature 36.9 C 01/31/24 20:23 Pulse 127 H 01/31/24 20:23 Respiratory Rate 18 01/31/24 20:23 Respiratory Effort Normal 01/31/24 20:27 Blood Pressure 138/97 H 01/31/24 20:23 Pulse Oximetry 96 01/31/24 20:23 Oxygen Delivery Method Room Air 01/31/24 20:23 Oxygen Flow Rate 0 01/31/24 20:23 Pain Level 7 01/31/24 20:23 Lab/Test Results Lab/Test Results: 01/31/24 21:53 Blood Blood Culture - Pending 01/31/24 21:44 Arm - Right Upper Wound Culture - Pending 01/31/24 21:44 Arm - Right Upper Gram Stain - Pending 01/31/24 20:34 Blood Blood Culture - Pending Laboratory Tests Range/Units 01/31/24 01/31/24 20:38 21:53 WBC (4.4-10.8) 10^3/uL 18.34 H RBC (4.36-5.78) 10^6/uL 4.32 L Hgb (13.5-17.5) g/dL 11.3 L Hct (40.0-50.0) % 35.4 L MCV (80-95) fL 82 MCH (27.0-33.0) pg 26.2 L MCHC (32.0-36.0) % 31.9 L RDW (11.8-14.1) % 14.2 H Plt Count (130-400) 10^3/uL 385 MPV (8.0-11.0) fL 9.9 Immature Gran % % 0.7 Neutrophils % % 79.9 Lymphocytes % % 11.7 Monocytes % % 5.9 Eosinophils % % 1.4 Basophils % % 0.4 Nucleated RBC % (0.0-0.3) % 0.0 Absolute Neutrophils (1.2-6.7) 10^3/uL 14.65 H Absolute Lymphocytes (1.2-3.4) 10^3/uL 2.15 Absolute Monocytes (0.1-0.8) 10^3/uL 1.08 H Absolute Eosinophils (0.0-0.7) 10^3/uL 0.26 Absolute Basophils (0.0-0.2) 10^3/uL 0.07 ESR (0-15) mm/hr 78 H VBG Lactate (0.6-1.4) mmol/L 2.0 H HIV 1&2 Ag/Ab, 4th Gen Cancelled HIV 1&2 Antibody Rapid Cancelled Procedures Abscess I/D Site: Upper Extremity Side (if applicable): Right Local Anesthetic: Lidocaine 1% Amount of anesthesia used (mL): 8 Technique: Incised with #11 Blade Amount of fluid expressed (mL): 20 Irrigation: Yes Packing used?: None Complications: Pain Medical Decision Making 48-year-old male presenting meeting sepsis criteria with tachycardia, and source of cellulitis and abscesses, and leukocytosis. Will initiate vancomycin, high suspicion for MRSA. Elevated liver function test likely consistent with acute hepatitis. Hepatitis profile ordered. HIV ordered given history of IV drug use. Patient may benefit from a surgical consultation in the morning. At this time abscesses have been drained and the remainder are all draining. Patient will require IV antibiotics and close monitoring. He is homeless and is requesting detox, his last use of fentanyl was yesterday. He states that he would like to receive medication for withdrawal in the hospital, and he would prefer methadone he had a horrible withdrawal experience with Suboxone last time this was attempted. He is hoping for [facility] for them to see him in the emergency department to establish. Patient has been calm, cooperative, insightful, alert and oriented and of decisional capacity throughout this encounter. He is willing to stay in the hospital but would like to be treated for withdrawal. He suspects he will go into withdrawal either tonight or tomorrow. At this time he feels okay per patient. There is no evidence of endocarditis clinically. Pending wound culture vancomycin was ordered. Patient was about to go to x-ray and said that he fell and was having some right chest wall pain. I did order chest x-ray for further evaluation. Quality:[facility] Health Related Social Needs: Health related social needs housing instability, housed, with risk of homelessness(Z59.811), food insecurity(Z59.41), transportation insecurity(Z59.82), material hardship(utilities)(Z59.87) [facility] All Active Problems (Updated 02/03/24 @ 08:49 by KAYLENE Moore) Opioid use disorder (Chronic) Active intravenous drug use (Chronic) Sepsis (Acute) Cellulitis and abscess of upper extremity (Acute) Social History Smoking/Tobacco Use Status: Current-Occasional Smoking risk assessment performed?: Yes Alcohol Intake: former Drug use: Current Sobriety Substance use type: opiates Housing: homeless Do you feel safe at home: Yes Do you feel safe in your relationship?: Yes
[2024-01-31 22:20] LABS: ALT 82 U/L (16-63); AST 76 U/L (15-37); Albumin 1.9 g/dL (3.4-5.0); Alkaline Phosphatase 92 U/L (46-116); Anion Gap 8.7 mmol/L (3-11); BUN 14 mg/dL (7-18); Bilirubin, Total 0.13 mg/dL (0.2-1.0); C-Reactive Protein 7.98 mg/dL (<or=0.5); CO2 25.3 mmol/L (21.0-32.0); Chloride 105 mmol/L (98-107); Glucose 148 mg/dL (74-106); Sodium 139 mmol/L (136-145); Total Protein 8.6 g/dL (6.4-8.2)
--- NOTE | 2024-01-31 22:50 | DI.VRAD_ITS ---
PROCEDURE INFORMATION: Exam: XR Chest Exam date and time: 01/31/2024 10:30 PM Age: 48 years old Clinical indication: Other: Right rib pain, fall TECHNIQUE: Imaging protocol: Radiologic exam of the chest. Views: 2 views. COMPARISON: No relevant prior studies available. FINDINGS: Lungs: Unremarkable. No consolidation. Pleural spaces: Unremarkable. No pleural effusion. No pneumothorax. Heart/Mediastinum: Unremarkable. No cardiomegaly. Bones/joints: Unremarkable. IMPRESSION: No acute findings. Dictated and Authenticated by: Krish Lerma MD. Ordering:MITCH Cade MD
--- NOTE | 2024-01-31 22:51 | DI.VRAD_ITS ---
PROCEDURE INFORMATION: Exam: XR Right Humerus Exam date and time: 01/31/2024 10:33 PM Age: 48 years old Clinical indication: Other: Ivda, cellulitis TECHNIQUE: Imaging protocol: Radiologic exam of the right humerus. Views: 2 or more views. COMPARISON: CR XR CHEST 2V PA LATERAL 01/31/2024 10:30 PM FINDINGS: Bones/joints: Normal. Soft tissues: Normal. IMPRESSION: No acute findings. Dictated and Authenticated by: Krish Lerma MD. Ordering:MITCH Cade MD
--- NOTE | 2024-01-31 22:51 | DI.VRAD_ITS ---
PROCEDURE INFORMATION: Exam: XR Left Humerus Exam date and time: 01/31/2024 10:35 PM Age: 48 years old Clinical indication: Other: Ivda, cellulitis TECHNIQUE: Imaging protocol: Radiologic exam of the left humerus. Views: 2 or more views. COMPARISON: CR XR CHEST 2V PA LATERAL 01/31/2024 10:30 PM FINDINGS: Bones/joints: Normal. Soft tissues: Normal. IMPRESSION: No acute findings. Dictated and Authenticated by: Krish Lerma MD. Ordering:MITCH Cade MD
--- NOTE | 2024-01-31 22:58 | W.PM.HP.N ---
Date of service: 01/31/24 Time of Service: 22:58 Assessment and Plan Assessment and plan (1) Cellulitis and abscess of upper extremity: Start date: 01/31/24 Status: Acute Assessment and plan: This is a 48-year-old gentleman with long-term IV drug use mostly with fentanyl to his knowledge that he does use street drugs. He does want to stop using and does need some social help. He does have food stamp but no home presently. He is depending on friends. He will continue on IV vancomycin with blood cultures pending. Urine with urine culture if positive will be performed. He will have Toradol IV for severe pain and we will avoid continuing IV opioid analgesics. He will see drug rehab with case management to arrange this today. We should follow-up echocardiogram with elevated CRP and sepsis with his IV drug use and self incising abscesses with possibility of seeding of his tricuspid valve though there is no murmur. If his blood cultures are positive and he has evidence of vegetations on the tricuspid valve he will require up to 6 weeks of IV antibiotic therapy. He does need social security benefits interviewer to help with his homeless situation and hopefully stabilize his life. He is a full code. (2) Sepsis: Start date: 01/31/24 Status: Acute Assessment and plan: Blood cultures and continue IV antibiotic therapy with trending labs. Encourage oral intake. Qualifiers: Sepsis acute organ dysfunction status: without acute organ dysfunction Sepsis type: sepsis due to unspecified organism Qualified Code(s): A41.9 - Sepsis, unspecified organism (3) Active intravenous drug use: Status: Chronic Assessment and plan: Patient has chronic IV drug use with chronic abscesses. Concern for tricuspid vegetations though no murmur. Follow-up echocardiogram. Outpatient drug rehab long-term. (4) Opioid use disorder: Status: Chronic Assessment and plan: Patient has chronic use but does want to quit. Drug rehabilitation as outpatient should be coordinated. He is homeless which may complicate treatment plan. History of Present Illness History of Present Illness Chief Complaint: Swollen, hot lesions over upper extremities and IV drug use sites Narrative: This is a 48-year-old male patient with history of IV drug use with fentanyl presenting to the ED with swollen, warm and painful lesions over his upper extremities. The ED physician did drain at least 10 cc of purulent material from right axillary abscess and the patient has been self draining abscesses over his arms chronically. Patient is homeless sleeping on friends couches which is not sustainable and does have his drug source from friends. He occasionally smokes cocaine. Urine drug screens are pending. He did receive fentanyl in the ED. He denies any fever or chills. He has never been hospitalized for cellulitis being seen in the ED this last year with antibiotic treatment. He does have an elevated WBC but no fever and blood cultures were performed with patient to be admitted for treatment of his cellulitis. He is a poor IV access with left ankle IV placed presently, consider midline if needed. He was initiated on vancomycin. He will have broad-spectrum urine drug screen and admits to at least fentanyl IV and is concerned about possible withdrawal. He will be prescribed clonidine if needed in the morning, drug counselors and rehab will be consulted if available. He is a full code. Review of Systems Narrative: 13 point review of systems otherwise unrevealing or stable. PFS All Active Problems (Updated 01/31/24 @ 23:05 by Андрей Peters) Opioid use disorder (Chronic) Active intravenous drug use (Chronic) Sepsis (Acute) Cellulitis and abscess of upper extremity (Acute) Social History Smoking/Tobacco Use Status: Current-Occasional Smoking risk assessment performed?: Yes Alcohol Intake: former Drug use: Current Sobriety Substance use type: opiates Housing: homeless Do you feel safe at home: Yes Do you feel safe in your relationship?: Yes Meds Allergies and Home Medications Allergies Allergy/AdvReac Type Severity Reaction Status Date / Time No Known Allergies Allergy Unverified 01/31/24 20:29 Home Medications ?Medication ?Instructions ?Recorded ?Confirmed ?Type Unknown [No Known Home Meds] 06/18/14 01/31/24 History Exam Narrative Exam Narrative: General: Patient is thin, unkempt and unshaven, in no acute distress with flattened affect but normal conversation. He is alert and oriented x 3. HEENT: Normocephalic, eyes with pupils equal and reactive light symmetrically, extraocular move intact and sclera anicteric. Oropharynx with moist mucosa and poor dentition. Neck: Supple without JVD. Back: Normal posture without CVA tenderness. Lungs: Fair aeration clear to auscultation percussion with no focalizing rales or rhonchi. Heart: Regular rate and rhythm with no murmurs or gallops appreciated. Abdomen: Scaphoid contour, soft and nontender to palpation with no guarding or rebound. No palpable hepatosplenomegaly. Genitalia/rectal: Exam deferred. Extremities: Without clubbing, cyanosis or pitting edema. Swelling over both arms with bandages which are dry. There is a dry ulcer over his right medial elbow near the medial epicondyle without swelling. Patient did have an I&D of his right axillary area in the ED. This was cultured. Minimal unknown source over lower extremities. Peripheral pulses intact. Skin: Multiple ulcers with some swelling over her arms as mentioned and bandaged which appears her dry over both arm up to the shoulders. Dry ulcer right medial elbow area as mentioned. Number,, warm and slightly moist. Neuro: Cranial nerves II to XII gross intact, no focalized motor deficits and no tremor. Psych: Flattened affect but normal mood. No abnormal thought processes. Recent and remote memory intact. Results Imaging Imaging Studies: EXAM: XR HUMERUS LT CLINICAL HISTORY: ivda, cellulitis. TECHNIQUE: 2D digital imaging was performed of the left humerus. Two images were obtained. AP and lateral views were obtained. COMPARISON: No priors for comparison. FINDINGS: BONES: No acute fracture is present. No bony destructive lesion is seen. Visualized portion of elbow and shoulder joints are unremarkable. SOFT TISSUE: Normal. IMPRESSION: Unremarkable radiographs of the left humerus. EXAM: XR CHEST 2V PA LATERAL CLINICAL HISTORY: right rib pain, fall TECHNIQUE: 2D digital imaging was performed of the chest. Three images were obtained. PA and lateral views were obtained. COMPARISON: No exams were available for comparison FINDINGS: MEDIASTINUM: Normal. HEART: Normal. PULMONARY VASCULATURE: Normal. LUNGS: The lungs are hyperinflated with flattened diaphragms suggesting underlying COPD. No focal consolidations. PLEURAL SPACE: No pleural effusion or pneumothorax. BONE:Within normal limits for the patient's age. OTHER FINDINGS:Normal. IMPRESSION: No acute pulmonary findings. Labs 01/31/24 21:53 01/31/24 21:53 Labs: Laboratory Results - last 24 hr 01/31/24 01/31/24 20:38 21:53 WBC 18.34 H RBC 4.32 L Hgb 11.3 L Hct 35.4 L MCV 82 MCH 26.2 L MCHC 31.9 L RDW 14.2 H Plt Count 385 MPV 9.9 Immature Gran % 0.7 Neutrophils % 79.9 Lymphocytes % 11.7 Monocytes % 5.9 Eosinophils % 1.4 Basophils % 0.4 Nucleated RBC % 0.0 Absolute Neutrophils 14.65 H Absolute Lymphocytes 2.15 Absolute Monocytes 1.08 H Absolute Eosinophils 0.26 Absolute Basophils 0.07 ESR 78 H VBG Lactate 2.0 H Sodium 139 Potassium 4.0 Chloride 105 Carbon Dioxide 25.3 Anion Gap 8.7 BUN 14 Creatinine 1.0 Est GFR (CKD-EPI 2020) 94.00 Glucose 148 H Calcium 8.0 L Total Bilirubin 0.13 L AST 76 H ALT 82 H Alkaline Phosphatase 92 C-Reactive Protein 7.98 H Total Protein 8.6 H Albumin 1.9 L HIV 1&2 Ag/Ab, 4th Gen Cancelled HIV 1&2 Antibody Rapid Cancelled Last Vital Signs Temp 36.9 C 01/31/24 20:23 Pulse 127 H 01/31/24 20:23 Resp 18 01/31/24 20:23 BP 138/97 H 01/31/24 20:23 Pulse Ox 96 01/31/24 20:23 Time Spent Time spent with Patient: >75 minutes Time was spent: preparing to see the patient(eg.review tests), obtaining and/or reviewing separately otained hiistory, ordering medications,tests, procedures, indepentently interpreting results, counseling the patient and care coordination
[2024-01-31 23:08] VITALS: O2SAT 97
[2024-01-31] MEDS: fentaNYL 100 MCG/2 ML VIAL 50 MCG IVP (23:08)
[2024-01-31] MEDS: Ketorolac 15 MG/ML VIAL 7.5 MG IVP (23:08)
[2024-01-31 23:10] VITALS: O2SAT 98
[2024-01-31 23:13] VITALS: BP 120/85; PULSE 98
--- NOTE | 2024-01-31 23:40 | W.PC.ACHO ---
Registration Status: Primary Language: Preferred Language: ED Information & Data Chief Complaint Cellulitis 01/31/24 22:21 Triage Note pt has bilateral arm 01/31/24 20:23 infections, skin break down, swollen, red. Has had this issue in past, but pt still using IV drugs and infection is back. pt wants to go to rehab but can't find a bed available Most Recent Vital Signs Temperature 36.9 C 01/31/24 20:23 Pulse 98 H 01/31/24 23:13 Respiratory Rate 18 01/31/24 20:23 Respiratory Effort Normal 01/31/24 20:27 Blood Pressure 120/85 01/31/24 23:13 Blood Pressure Mean 96 01/31/24 23:13 Pulse Oximetry 98 01/31/24 23:10 Oxygen Delivery Method Room Air 01/31/24 20:23 Oxygen Flow Rate 0 01/31/24 20:23 Pain Level 7 01/31/24 20:23 Allergies No Known Allergies Allergy (Unverified 01/31/24 20:29) IV IV Catheter Gauge [Left Foot] 20 Diet Orders Category Date Time Status Regular/Normal [DIET] Nutrition 02/01/24 Breakfast Ordered Diagnostics 01/31/24 01/31/24 01/31/24 Range/Units 23:37 23:15 23:14 WBC (4.4-10.8) 10^3/uL RBC (4.36-5.78) 10^6/uL Hgb (13.5-17.5) g/dL Hct (40.0-50.0) % MCV (80-95) fL MCH (27.0-33.0) pg MCHC (32.0-36.0) % RDW (11.8-14.1) % Plt Count (130-400) 10^3/uL MPV (8.0-11.0) fL Immature Gran % % Neutrophils % % Lymphocytes % % Monocytes % % Eosinophils % % Basophils % % Nucleated RBC % (0.0-0.3) % Absolute Neutrophils (1.2-6.7) 10^3/uL Absolute Lymphocytes (1.2-3.4) 10^3/uL Absolute Monocytes (0.1-0.8) 10^3/uL Absolute Eosinophils (0.0-0.7) 10^3/uL Absolute Basophils (0.0-0.2) 10^3/uL ESR (0-15) mm/hr PT Pending INR Pending VBG Lactate (0.6-1.4) mmol/L Sodium (136-145) mmol/L Potassium (3.5-5.1) mmol/L Chloride (98-107) mmol/L Carbon Dioxide (21.0-32.0) mmol/L Anion Gap (3-11) mmol/L BUN (7-18) mg/dL Creatinine (0.70-1.30) mg/dL Est GFR (CKD-EPI 2020) (mL/min/1.73m2) Glucose (74-106) mg/dL Calcium (8.5-10.1) mg/dL Total Bilirubin (0.2-1.0) mg/dL AST (15-37) U/L ALT (16-63) U/L Alkaline Phosphatase (46-116) U/L C-Reactive Protein (<or=0.5) mg/dL Total Protein (6.4-8.2) g/dL Albumin (3.4-5.0) g/dL Ur Buprenorphine Pending Ur Norbuprenorphine Pending Ethyl Alcohol Pending Urine Xylazine Pending COVID-19 Source Pending SARS-CoV-2 (PCR) Pending Hepatitis A IgM Ab Hep Bs Antigen Hep B Core Total Ab Hepatitis C Antibody HIV 1&2 Ag/Ab, 4th Gen HIV 1&2 Antibody Rapid 01/31/24 01/31/24 01/31/24 Range/Units 21:55 21:53 20:38 WBC 18.34 H (4.4-10.8) 10^3/uL RBC 4.32 L (4.36-5.78) 10^6/uL Hgb 11.3 L (13.5-17.5) g/dL Hct 35.4 L (40.0-50.0) % MCV 82 (80-95) fL MCH 26.2 L (27.0-33.0) pg MCHC 31.9 L (32.0-36.0) % RDW 14.2 H (11.8-14.1) % Plt Count 385 (130-400) 10^3/uL MPV 9.9 (8.0-11.0) fL Immature Gran % 0.7 % Neutrophils % 79.9 % Lymphocytes % 11.7 % Monocytes % 5.9 % Eosinophils % 1.4 % Basophils % 0.4 % Nucleated RBC % 0.0 (0.0-0.3) % Absolute Neutrophils 14.65 H (1.2-6.7) 10^3/uL Absolute Lymphocytes 2.15 (1.2-3.4) 10^3/uL Absolute Monocytes 1.08 H (0.1-0.8) 10^3/uL Absolute Eosinophils 0.26 (0.0-0.7) 10^3/uL Absolute Basophils 0.07 (0.0-0.2) 10^3/uL ESR 78 H (0-15) mm/hr PT INR VBG Lactate 2.0 H (0.6-1.4) mmol/L Sodium 139 (136-145) mmol/L Potassium 4.0 (3.5-5.1) mmol/L Chloride 105 (98-107) mmol/L Carbon Dioxide 25.3 (21.0-32.0) mmol/L Anion Gap 8.7 (3-11) mmol/L BUN 14 (7-18) mg/dL Creatinine 1.0 (0.70-1.30) mg/dL Est GFR (CKD-EPI 2020) 94.00 (mL/min/1.73m2) Glucose 148 H (74-106) mg/dL Calcium 8.0 L (8.5-10.1) mg/dL Total Bilirubin 0.13 L (0.2-1.0) mg/dL AST 76 H (15-37) U/L ALT 82 H (16-63) U/L Alkaline Phosphatase 92 (46-116) U/L C-Reactive Protein 7.98 H (<or=0.5) mg/dL Total Protein 8.6 H (6.4-8.2) g/dL Albumin 1.9 L (3.4-5.0) g/dL Ur Buprenorphine Ur Norbuprenorphine Ethyl Alcohol Urine Xylazine COVID-19 Source SARS-CoV-2 (PCR) Hepatitis A IgM Ab Pending Hep Bs Antigen Pending Hep B Core Total Ab Pending Hepatitis C Antibody Pending HIV 1&2 Ag/Ab, 4th Gen Pending Cancelled HIV 1&2 Antibody Rapid Cancelled 01/31/24 21:44 Wound Culture - Pending Arm - Right Upper Gram Stain - Final 01/31/24 22:20 Blood Culture - Pending Blood 01/31/24 21:53 Blood Culture - Pending Blood Intake and Output - 24 Hour Total 01/31/24 20:20 thru 01/31/24 20:23 Weight 68.039 kg Falls Risk Assessment History of Falls No History 01/31/24 23:12 Contributing Factors No Factors 01/31/24 23:12 Ambulatory Aids Independent 01/31/24 23:12 Tubes/Lines None 01/31/24 23:12 Gait Evaluation No gait disturbance 01/31/24 23:12 Cognition No cognitive impairment 01/31/24 23:12 Fall Total Score 0 01/31/24 23:12 Level of Risk Standard/Low Risk 01/31/24 23:12 Problems (Last Reviewed 01/31/24 @ 23:01 by Андрей Peters) Opioid use disorder (Chronic) Active intravenous drug use (Chronic) Sepsis (Acute) Cellulitis and abscess of upper extremity (Acute) v v v v v v v v v Sending and/or Receiving Nurses: Please use comment section below to note any information pertinent to the patient hand-off not included above. Information / Comments: Report taken from ER nurse Юлия. patient is AO x 4.; has bilateral upper extremities cellulitis; Vanco, Toradol and fentanyl administered in ER per report. Ultrasound also performed c/o abscee and with negative result. Report received from:
[2024-01-31 23:44] LABS: ETHANOL BLOOD < 3.0 mg/dL (<10)
[2024-01-31 23:57] VITALS: BP 100/60; PULSE 101; RESP 16; TEMP 37; O2SAT 97
[2024-02-01] VITALS (9 sets, daily range): BP systolic 100–138; BP diastolic 60–89; PULSE 78–103; RESP 16–23; TEMP 36.5–37.3; O2SAT 97–100
[2024-02-01 05:46] LABS: Source Nasal/Nares
[2024-02-01 06:16] LABS: COVID-19 PCR Negative (Negative)
[2024-02-01 07:23] LABS: HCT 33.4 % (40.0-50.0); HGB 10.7 g/dL (13.5-17.5); MCH 25.8 pg (27.0-33.0); MCV 81 fL (80-95); MPV 9.7 fL (8.0-11.0); Platelet Count 375 10^3/uL (130-400); RBC 4.14 10^6/uL (4.36-5.78); RDW 14.4 % (11.8-14.1); RDW-SD 42.6 fL; WBC 11.57 10^3/uL (4.4-10.8)
[2024-02-01 07:33] LABS: INR 1.1 (0.9-1.1); Prothrombin Time 10.9 sec (9.1-11.1)
[2024-02-01 07:47] LABS: ALT 79 U/L (16-63); AST 73 U/L (15-37); Albumin 1.8 g/dL (3.4-5.0); Alkaline Phosphatase 87 U/L (46-116); Anion Gap 8.6 mmol/L (3-11); BUN 15 mg/dL (7-18); CO2 24.4 mmol/L (21.0-32.0); CREATININE 0.9 mg/dL (0.70-1.30); Calcium 8.4 mg/dL (8.5-10.1); Chloride 105 mmol/L (98-107); Estimated GFR 106.67 (mL/min/1.73m2); Glucose 120 mg/dL (74-106); Magnesium 1.9 mg/dL (1.8-2.4); Sodium 138 mmol/L (136-145); Total Protein 8.3 g/dL (6.4-8.2)
[2024-02-01 07:58] LABS: Bilirubin, Direct 0.1 mg/dL (0.0-0.2)
[2024-02-01 08:44] LABS: *AMPHETAMINES SCREEN URINE Negative (Negative); *BARBITURATES SCREEN URINE Negative (Negative); *BENZODIAZEPINES SCREEN URINE Negative (Negative); Cannabinoids THC Negative (Negative); Cocaine Screen,Urine Positive (Negative); METHADONE URINE SCREEN Negative (Negative); OPIATES URINE SCREEN Negative (Negative)
[2024-02-01 08:45] LABS: Tricyclic Antidepressants Negative (Negative)
--- NOTE | 2024-02-01 08:53 | INITIAL_ITS ---
Date of service: 02/01/24 Time of Service: 08:54 Care Management Initial Assmt Initial Assessment Reason for Hospitalization: cellulitis with abscess Functional Status/Living Situation Patient Presentation: Misha was sitting up in bed when CM met with him. He stated that he is feeling sleepy secondary to the medication he has been getting for withdrawal symptoms. Misha informed the providers that he has a long history of using drugs, most recently cocaine and fentanyl. He is expressing a desire for treatment and help to get and stay sober. CM contacted a 911 Operator who was able to come and meet with Misha this afternoon.Misha identified lack of housing as a significant barrier to his recovery. He has been staying with friends that may not always be the best for him as he is trying to avoid contact with drugs. He specifically does not want to go to the skilled nursing in [facility] for that reason. In addition to a lack of housing, Misha is also in need of a PCP and insurance. He informed CM that he used to have Medicaid but failed to fill out the paperwork and lost coverage a few months ago. CM sent a referral to [employer] for assistance with insurance as well as a PCP. He was also given contact information for [facility] to address housing but likely [facility] [employer] can help with that as well. Misha was close to his grandparents and lived with them and cared for them until his grandfather in September. He has parents and siblings in the area but he explained that none of them want to associate with him unless he is clean and sober. He verbalized several times how much he wants to stay off drugs and be able to find a place to live and return to the workforce. Town of Residence: [place] undomiciled Resides with: Alone Natural Supports: family but conditional on sobriety Employment Status: Unemployed Instrumental Activities of Daily Living (ADLs): Independent Medications Medication Management: No Issues/Barriers identified Advance Directives Advance Directives: Do you have an Advance Directive: N 06/18/14 10:22 AD On File at [facility]: N 06/18/14 10:22 Date Asked 01/31/24 01/31/24 20:24 AD Date Reviewed COLST On File at [facility] COLST Date Scanned Code Status Resuscitation Status Full Code Portal Pt does not currently have a portal and education provided: No Portal Education: Other (no home) Insurance Coverage/Financial Issues Insurance: self pay Financial Issues: unemployed, homeless, uninsured, no PCP Care Team Visit Care Team Role Provider Type Unknown Unknown Primary Care Provider STAFF PHYSICIAN Mitra Harman Other Providers SPORTS MEDICINE COORDINATOR Zully Martin Other Providers SPORTS MEDICINE COORDINATOR Samantha Mahajan Other Providers SPORTS MEDICINE COORDINATOR Charla Romero RN Other Providers SPORTS MEDICINE COORDINATOR KAYLENE Moore Emergency Provider PHYSICIANS CAR REPAIRER Андрей Peters Admit Provider NON-[facility] STAFF PHYSICIAN Attending Provider Discharge Potential Discharge Needs: Other (will need to establish with local PCP) Anticipated Barriers to Discharge: SDOH Patient/Family Education Needs: Review discharge instructions, discuss Ask Me Three Transportation: RCT Plan: Anticipate Misha will be discharged back to the community when medically cleared. He may secure a bed at the local skilled nursing (reluctant to do so) or continue to stay with friends. Misha was provided with contact info for [facility]. CM sent a referral to [employer] for insurance, a PCP, possible food resources and financial assistance. CM will follow and continue to support discharge planning efforts. PFSH All Active Problems (Updated 02/03/24 @ 08:49 by KAYLENE Moore) Opioid use disorder (Chronic) Active intravenous drug use (Chronic) Sepsis (Acute) Cellulitis and abscess of upper extremity (Acute) Social History Smoking/Tobacco Use Status: Current-Occasional Smoking risk assessment performed?: Yes Alcohol Intake: former Drug use: Current Sobriety Substance use type: opiates Housing: homeless Do you feel safe at home: Yes Do you feel safe in your relationship?: Yes SDOH(Care Management) Screening Will the Patient Participate in the Screening?: Yes Do you worry about having a steady place to live?: yes In the past 12 months, have you had to go without electric, gas, oil or water in your home?: yes Have you or anyone in your house had to go without enough food to eat?: yes Has lack of transportation kept you from medical appointments or from doing things needed for daily living?: yes Has anyone in your support network made you feel unsafe for any reason?: no Social Determinants of Health Comments(SDOH Details): patient is homeless Health Related Social Needs Health related social needs: housing instability, housed, with risk of homelessness(Z59.811), food insecurity(Z59.41), transportation insecurity(Z59.82) and material hardship(utilities)(Z59.87)
[2024-02-01] MEDS: Normal Saline Flush 10 ML SYR IVP ×3 (09:02→23:33)
[2024-02-01 10:15] LABS: Bilirubin Small (Negative); Blood Trace-intact (Negative); Clarity Clear (Clear); Glucose Negative (Negative); Ketones Negative (Negative); Leukocyte Esterase Negative (Negative); Nitrite Negative (Negative); Specific Gravity >= 1.030 (1.005-1.025); Urobilinogen 0.2 mg/dL (Up to 0.2); pH 5.5 (5-8)
[2024-02-01 10:21] LABS: Bacteria Few HPF (Negative); C & S Indicated? No; Casts Negative LPF (Negative); Crystals Few Calcium Oxalate HPF (Negative); Epithelial Cells Rare HPF (Negative); Mucus Trace (Negative); RBC 0-2 HPF (0-2); WBC 0-2 HPF (0-5)
[2024-02-01] MEDS: fentaNYL 100 MCG/2 ML VIAL 25 MCG IVP (11:04)
[2024-02-01] MEDS: VANCOMYCIN/WATER (PEG) 1 GM/200 ML BAG IV ×2 (11:05→21:27)
[2024-02-01] MEDS: Ketorolac 30 MG/ML VIAL IVP ×3 (14:58→21:26)
--- NOTE | 2024-02-01 15:03 | PGE_ITS ---
Date of Service Date of service: 02/01/24 Time of Service: 15:03 Assessment and Plan Assessment and plan (1) Cellulitis and abscess of upper extremity: Start date: 01/31/24 Status: Acute Assessment and plan: continue IV vancomycin with blood cultures pending. He will see drug rehab with case management to arrange this today. We should follow-up echocardiogram with elevated CRP and sepsis with his IV drug use and self incising abscesses with possibility of seeding of his tricuspid valve though there is no murmur. If his blood cultures are positive and he has evidence of vegetations on the tricuspid valve he will require up to 6 weeks of IV antibiotic therapy. He does need social media content specialist to help with his homeless situation and hopefully stabilize his life. He is a full code. (2) Sepsis: Start date: 01/31/24 Status: Acute Assessment and plan: Blood cultures and continue IV antibiotic therapy with trending labs. Encourage oral intake. Qualifiers: Sepsis type: sepsis due to unspecified organism Sepsis acute organ dysfunction status: without acute organ dysfunction Qualified Code(s): A41.9 - Sepsis, unspecified organism (3) Active intravenous drug use: Status: Chronic Assessment and plan: Patient has chronic IV drug use with chronic abscesses. Concern for tricuspid vegetations though no murmur. Follow-up echocardiogram. Outpatient drug rehab long-term. (4) Opioid use disorder: Status: Chronic Assessment and plan: Patient has chronic use but does want to quit. Drug rehabilitation as outpatient should be coordinated. He is homeless which may complicate treatment plan. Subjective Subjective Patient reports: tolerating a regular diet, bowel movement and nausea; denies diarrhea, vomiting, shortness of breath, afebrile or fever Interval history since last seen: Complaining of nausea and pain and not feeling well. Awake, alert adentulous, semifowlers in bed. Exam Narrative Exam Narrative: Alert and oriented 48-year-old male in no acute distress, sinus tachycardia, pupils equal round reactive to light and accommodation, lungs clear to auscultation, sinus tachycardia, bilateral upper extremities with multiple abscesses and excoriations with drainage, cellulitis extensively to the left upper extremity with draining abscesses, left upper extremity with axillary abscess and mid humeral abscess. Neurovascularly intact, no [place] lesions. No murmur. Objective Last Vital Signs Temp 37 C 02/01/24 14:52 Pulse 103 H 02/01/24 14:54 Resp 23 02/01/24 14:52 BP 123/79 02/01/24 14:52 Pulse Ox 99 02/01/24 14:54 Laboratory Results - last 24 hr 01/31/24 01/31/24 02/01/24 20:38 21:53 05:30 WBC 18.34 H RBC 4.32 L Hgb 11.3 L Hct 35.4 L MCV 82 MCH 26.2 L MCHC 31.9 L RDW 14.2 H Plt Count 385 MPV 9.9 Immature Gran % 0.7 Neutrophils % 79.9 Lymphocytes % 11.7 Monocytes % 5.9 Eosinophils % 1.4 Basophils % 0.4 Nucleated RBC % 0.0 Absolute Neutrophils 14.65 H Absolute Lymphocytes 2.15 Absolute Monocytes 1.08 H Absolute Eosinophils 0.26 Absolute Basophils 0.07 ESR 78 H PT INR VBG Lactate 2.0 H Sodium 139 Potassium 4.0 Chloride 105 Carbon Dioxide 25.3 Anion Gap 8.7 BUN 14 Creatinine 1.0 Est GFR (CKD-EPI 2020) 94.00 Glucose 148 H Calcium 8.0 L Magnesium Total Bilirubin 0.13 L Conjugated Bilirubin AST 76 H ALT 82 H Alkaline Phosphatase 92 C-Reactive Protein 7.98 H Total Protein 8.6 H Albumin 1.9 L Urine Color Urine Clarity Urine pH Ur Specific [place] Urine Protein Urine Ketones Urine Blood Urine Nitrite Urine Bilirubin Urine Urobilinogen Ur Leukocyte Esterase Urine RBC Urine WBC Ur Epithelial Cells Urine Crystals Urine Bacteria Urine Casts Urine Mucus Ur Culture Indicated? Urine Glucose Urine Opiates Screen Urine Methadone Screen Ur Barbiturates Screen Ur Tricyclics Screen Ur Amphetamines Screen U Benzodiazepines Scrn Urine Cocaine Screen Ur THC Screen Ethyl Alcohol < 3.0 COVID-19 Source Nasal/Nares SARS-CoV-2 (PCR) Negative HIV 1&2 Ag/Ab, 4th Gen Cancelled HIV 1&2 Antibody Rapid Cancelled 02/01/24 02/01/24 07:00 08:00 WBC 11.57 H RBC 4.14 L Hgb 10.7 L Hct 33.4 L MCV 81 MCH 25.8 L MCHC 32.0 RDW 14.4 H Plt Count 375 MPV 9.7 Immature Gran % Neutrophils % Lymphocytes % Monocytes % Eosinophils % Basophils % Nucleated RBC % Absolute Neutrophils Absolute Lymphocytes Absolute Monocytes Absolute Eosinophils Absolute Basophils ESR PT 10.9 INR 1.1 VBG Lactate Sodium 138 Potassium 4.0 Chloride 105 Carbon Dioxide 24.4 Anion Gap 8.6 BUN 15 Creatinine 0.9 Est GFR (CKD-EPI 2020) 106.67 Glucose 120 H Calcium 8.4 L Magnesium 1.9 Total Bilirubin 0.20 Conjugated Bilirubin 0.1 AST 73 H ALT 79 H Alkaline Phosphatase 87 C-Reactive Protein Total Protein 8.3 H Albumin 1.8 L Urine Color Yellow Urine Clarity Clear Urine pH 5.5 Ur Specific [place] >= 1.030 H Urine Protein 100 H Urine Ketones Negative Urine Blood Trace-intact H Urine Nitrite Negative Urine Bilirubin Small H Urine Urobilinogen 0.2 Ur Leukocyte Esterase Negative Urine RBC 0-2 Urine WBC 0-2 Ur Epithelial Cells Rare Urine Crystals Few Calcium Oxalate Urine Bacteria Few Urine Casts Negative Urine Mucus Trace Ur Culture Indicated? No Urine Glucose Negative Urine Opiates Screen Negative Urine Methadone Screen Negative Ur Barbiturates Screen Negative Ur Tricyclics Screen Negative Ur Amphetamines Screen Negative U Benzodiazepines Scrn Negative Urine Cocaine Screen Positive A Ur THC Screen Negative Ethyl Alcohol COVID-19 Source SARS-CoV-2 (PCR) HIV 1&2 Ag/Ab, 4th Gen HIV 1&2 Antibody Rapid PAWSS Have you Been Recently Intoxicated or Drunk Within the Last 30 days?: Yes Have you Ever Experienced Previous Episodes of Alcohol Withdrawal?: Yes Have you ever Experienced Withdrawal Seizures?: No Have you ever Experienced Delirium Tremens(DT)s?: No Have you ever undergone Alcohol Rehabilitation Treatment (i.e, inpt ot outpatient treatment programs)?: No Have you ever Experienced Blackouts?: No Have you ever Combined Alcohol with other Downers within the last 90 days?: Unable to Obtain Have you ever Combined Alcohol with any other Substance of Abuse during the last 90 days?: Unable to Obtain Positive Blood Alcohol level on Presentation? [PCS.BAL]: Unable to Obtain Evidence of Increased Autonomic Activity (i.e. HR>120, tremor, sweating, agitation, nausea)?: Unable to Obtain Result: 2 Time Spent with Patient Time Spent with Patient: 25-34 minutes Time was spent: preparing to see the patient(eg.review tests), ordering medications,tests, procedures, referring, communicating with other health home care giver, indepentently interpreting results, counseling the patient and care coordination
--- NOTE | 2024-02-01 15:40 | NUR.NOTE ---
Nursing Note: 1500- life coach at bedside to discuss ongoing plans and support.
[2024-02-01] MEDS: Calcium Carbonate *TUMS* 500 MG CHEW PO (16:53)
[2024-02-01] MEDS: HYDROmorphone 1 MG/ML SYR IVP (23:33)
[2024-02-02 03:25] VITALS: BP 131/81; PULSE 93; RESP 16; TEMP 37.1; O2SAT 98
[2024-02-02] MEDS: HYDROmorphone 1 MG/ML SYR IVP ×4 (07:26→23:37)
[2024-02-02] MEDS: Normal Saline Flush 10 ML SYR IVP ×6 (07:26→23:37)
[2024-02-02 07:39] VITALS: BP 131/84; PULSE 89; RESP 16; TEMP 36.7; O2SAT 99
[2024-02-02 07:53] VITALS: PULSE 105
[2024-02-02 07:54] LABS: Abs Immature Grans 0.06 10^3/uL (0.0-0.06); Absolute Basophil Count 0.02 10^3/uL (0.0-0.2); Absolute Eosinophil Count 0.22 10^3/uL (0.0-0.7); Absolute Lymphocyte Count 1.33 10^3/uL (1.2-3.4); Absolute Monocyte Count 0.63 10^3/uL (0.1-0.8); Absolute Neutrophil Count 7.62 10^3/uL (1.2-6.7); Basophils % 0.2 %; Eosinophils % 2.2 %; HCT 38.3 % (40.0-50.0); HGB 12.1 g/dL (13.5-17.5); Immature Grans % 0.6 %; Lymphocytes % 13.5 %; MCHC 31.6 % (32.0-36.0); MCV 82 fL (80-95); MPV 9.3 fL (8.0-11.0); Monocytes % 6.4 %; Neutrophils % 77.1 %; Platelet Count 368 10^3/uL (130-400); RBC 4.66 10^6/uL (4.36-5.78); RDW 14.3 % (11.8-14.1); RDW-SD 42.3 fL; WBC 9.88 10^3/uL (4.4-10.8)
[2024-02-02 08:04] LABS: Anion Gap 6.8 mmol/L (3-11); BUN 14 mg/dL (7-18); CO2 27.2 mmol/L (21.0-32.0); CREATININE 0.8 mg/dL (0.70-1.30); Calcium 8.8 mg/dL (8.5-10.1); Chloride 103 mmol/L (98-107); Estimated GFR 110.53 (mL/min/1.73m2); Glucose 114 mg/dL (74-106); Magnesium 1.8 mg/dL (1.8-2.4); Potassium 4.3 mmol/L (3.5-5.1); Sodium 137 mmol/L (136-145)
[2024-02-02 08:09] LABS: ALT 75 U/L (16-63); AST 44 U/L (15-37); Alkaline Phosphatase 101 U/L (46-116); Bilirubin, Direct 0.1 mg/dL (0.0-0.2); Bilirubin, Total 0.18 mg/dL (0.2-1.0); Total Protein 8.9 g/dL (6.4-8.2); Vancomycin, Random 9.8 ug/mL
--- NOTE | 2024-02-02 09:28 | PGE_ITS ---
Date of Service Date of service: 02/02/24 Time of Service: 09:28 Assessment and Plan Assessment and plan (1) Cellulitis and abscess of upper extremity: Start date: 01/31/24 Status: Acute Assessment and plan: continue IV vancomycin with blood cultures pending. Did speak with recovery coaches yesterday and is formulating a plan. We should follow-up echocardiogram with elevated CRP and sepsis with his IV drug use and self incising abscesses with possibility of seeding of his tricuspid valve though there is no murmur. If his blood cultures are positive and he has evidence of vegetations on the tricuspid valve he will require up to 6 weeks of IV antibiotic therapy. He does need social sciences instructor to help with his homeless situation and hopefully stabilize his life. He is a full code. (2) Sepsis: Start date: 01/31/24 Status: Acute Assessment and plan: Blood cultures and continue IV antibiotic therapy with trending labs. Encourage oral intake. Qualifiers: Sepsis type: sepsis due to unspecified organism Sepsis acute organ dysfunction status: without acute organ dysfunction Qualified Code(s): A41.9 - Sepsis, unspecified organism (3) Active intravenous drug use: Status: Chronic Assessment and plan: Patient has chronic IV drug use with chronic abscesses. Concern for tricuspid vegetations though no murmur. Follow-up echocardiogram. Outpatient drug rehab long-term. (4) Opioid use disorder: Status: Chronic Assessment and plan: Patient has chronic use but does want to quit. Drug rehabilitation as outpatient should be coordinated. He is homeless which may complicate treatment plan. Subjective Subjective Patient reports: no new complaints, feels better, tolerating liquids well, tolerating a regular diet, voiding w/o difficulty and bowel movement; denies flatus, diarrhea, nausea, vomiting, shortness of breath or fever Interval history since last seen: Misha states he is feeling better than yesterday. He got up for a shower and reports he squeezed alot of pus out of the superior most lesion on the right upper arm. Exam Narrative Exam Narrative: Alert and oriented 48-year-old male in no acute distress, sinus tachycardia, pupils equal round reactive to light and accommodation, lungs clear to auscultation, sinus tachycardia, bilateral upper extremities with multiple abscesses and excoriations with drainage, cellulitis extensively to the left upper extremity with draining abscesses, left upper extremity with axillary abscess and mid humeral abscess. Right upper extr with pus draining from most superior abscess. Neurovascularly intact, no Jan[place]ay lesions. No murmur. Objective Last Vital Signs Temp 36.7 C 02/02/24 07:39 Pulse 105 H 02/02/24 07:53 Resp 16 02/02/24 07:39 BP 131/84 02/02/24 07:39 Pulse Ox 99 02/02/24 07:39 Laboratory Results - last 24 hr 02/01/24 02/02/24 08:00 07:45 WBC 9.88 RBC 4.66 Hgb 12.1 L Hct 38.3 L MCV 82 MCH 26.0 L MCHC 31.6 L RDW 14.3 H Plt Count 368 MPV 9.3 Immature Gran % 0.6 Neutrophils % 77.1 Lymphocytes % 13.5 Monocytes % 6.4 Eosinophils % 2.2 Basophils % 0.2 Nucleated RBC % 0.0 Absolute Neutrophils 7.62 H Absolute Lymphocytes 1.33 Absolute Monocytes 0.63 Absolute Eosinophils 0.22 Absolute Basophils 0.02 Sodium 137 Potassium 4.3 Chloride 103 Carbon Dioxide 27.2 Anion Gap 6.8 BUN 14 Creatinine 0.8 Est GFR (CKD-EPI 2020) 110.53 Glucose 114 H Calcium 8.8 Magnesium 1.8 Total Bilirubin 0.18 L Conjugated Bilirubin 0.1 AST 44 H ALT 75 H Alkaline Phosphatase 101 Total Protein 8.9 H Albumin 2.0 L Urine Color Yellow Urine Clarity Clear Urine pH 5.5 Ur Specific [place] >= 1.030 H Urine Protein 100 H Urine Ketones Negative Urine Blood Trace-intact H Urine Nitrite Negative Urine Bilirubin Small H Urine Urobilinogen 0.2 Ur Leukocyte Esterase Negative Urine RBC 0-2 Urine WBC 0-2 Ur Epithelial Cells Rare Urine Crystals Few Calcium Oxalate Urine Bacteria Few Urine Casts Negative Urine Mucus Trace Ur Culture Indicated? No Urine Glucose Negative Random Vancomycin 9.8 PAWSS Have you Been Recently Intoxicated or Drunk Within the Last 30 days?: Yes Have you Ever Experienced Previous Episodes of Alcohol Withdrawal?: Yes Have you ever Experienced Withdrawal Seizures?: No Have you ever Experienced Delirium Tremens(DT)s?: No Have you ever undergone Alcohol Rehabilitation Treatment (i.e, inpt ot ou tpatient treatment programs)?: No Have you ever Experienced Blackouts?: No Have you ever Combined Alcohol with other Downers within the last 90 days?: Unable to Obtain Have you ever Combined Alcohol with any other Substance of Abuse during the last 90 days?: Unable to Obtain Positive Blood Alcohol level on Presentation? [PCS.BAL]: Unable to Obtain Evidence of Increased Autonomic Activity (i.e. HR>120, tremor, sweating, agitation, nausea)?: Unable to Obtain Result: 2 Time Spent with Patient Time Spent with Patient: 35-49 minutes Time was spent: preparing to see the patient(eg.review tests), ordering medications,tests, procedures, referring, communicating with other health primary care sales representative, indepentently interpreting results, counseling the patient and care coordination
[2024-02-02] MEDS: Ketorolac 30 MG/ML VIAL IVP ×3 (09:56→21:58)
[2024-02-02] MEDS: VANCOMYCIN/WATER (PEG) 1.5 GM/300 ML BAG IV ×2 (11:29→21:59)
[2024-02-02 11:43] VITALS: BP 143/94; PULSE 78; RESP 18; TEMP 36.6; O2SAT 98
[2024-02-02] MEDS: Mylanta Suspension 30 ML CUP PO (12:56)
[2024-02-02] MEDS: Acetaminophen 325 MG TAB PO ×2 (15:48→20:07)
[2024-02-02 19:48] VITALS: BP 122/86; PULSE 94; RESP 18; TEMP 37; O2SAT 97
[2024-02-02 23:05] VITALS: BP 142/85; PULSE 85; RESP 18; TEMP 37.2; O2SAT 98
[2024-02-03 03:11] VITALS: BP 135/76; PULSE 84; RESP 18; TEMP 36.7; O2SAT 99
[2024-02-03] MEDS: Ketorolac 30 MG/ML VIAL IVP (05:52)
[2024-02-03] MEDS: Normal Saline Flush 10 ML SYR IVP ×2 (05:53→07:42)
[2024-02-03 06:56] LABS: Abs Immature Grans 0.05 10^3/uL (0.0-0.06); Absolute Basophil Count 0.05 10^3/uL (0.0-0.2); Absolute Eosinophil Count 0.27 10^3/uL (0.0-0.7); Absolute Lymphocyte Count 1.47 10^3/uL (1.2-3.4); Absolute Monocyte Count 0.52 10^3/uL (0.1-0.8); Absolute Neutrophil Count 5.04 10^3/uL (1.2-6.7); Basophils % 0.7 %; Eosinophils % 3.6 %; HCT 37.2 % (40.0-50.0); HGB 11.8 g/dL (13.5-17.5); Immature Grans % 0.7 %; Lymphocytes % 19.9 %; MCH 25.9 pg (27.0-33.0); MCHC 31.7 % (32.0-36.0); MCV 82 fL (80-95); MPV 9.8 fL (8.0-11.0); Neutrophils % 68.1 %; Platelet Count 349 10^3/uL (130-400); RBC 4.55 10^6/uL (4.36-5.78); RDW 14.2 % (11.8-14.1)
[2024-02-03 07:11] LABS: Anion Gap 6.2 mmol/L (3-11); BUN 15 mg/dL (7-18); CO2 26.8 mmol/L (21.0-32.0); CREATININE 0.9 mg/dL (0.70-1.30); Calcium 8.4 mg/dL (8.5-10.1); Chloride 105 mmol/L (98-107); Estimated GFR 106.67 (mL/min/1.73m2); Glucose 122 mg/dL (74-106); Magnesium 2.1 mg/dL (1.8-2.4); Potassium 4.6 mmol/L (3.5-5.1); Sodium 138 mmol/L (136-145)
[2024-02-03 07:23] LABS: ALT 65 U/L (16-63); AST 32 U/L (15-37); Alkaline Phosphatase 99 U/L (46-116); Bilirubin, Total 0.12 mg/dL (0.2-1.0); Total Protein 8.2 g/dL (6.4-8.2)
[2024-02-03 07:25] LABS: Bilirubin, Direct < 0.1 mg/dL (0.0-0.2)
[2024-02-03] MEDS: HYDROmorphone 1 MG/ML SYR IVP (07:41)
[2024-02-03 07:43] LABS: Vancomycin, Random 16.5 ug/mL
[2024-02-03 07:45] VITALS: BP 109/97; PULSE 94; RESP 17; TEMP 36.8; O2SAT 100
--- NOTE | 2024-02-03 08:13 | W.SURGCON ---
Date of service: 02/03/24 Time of Service: 08:13 Assessment and Plan Assessment and plan (1) Cellulitis and abscess of upper extremity: Status: Acute Assessment and plan: 48-year-old man with cutaneous, superficial abscesses from IV drug use. No surgical intervention is warranted. Management for this is prevention and not injecting further. If other abscesses develop, which is likely improbable, they simply need localized wound care such as would be done for a boil or pimple. Personal hygiene, washing, using heat and popping these are all within the management strategies if and when they occur. He will have more in the future and this should be the management strategy. History of Present Illness Narrative: Misha is a 48-year-old man who has some cutaneous abscesses on his upper extremities. I asked him how long these have been a problem and he says about a year or so. He never used to get them previously in life. I asked him what they are from or why he has them now at 48 years old and he is straightforward because I use dirty needles when I shoot up. At the bedside he feels like they are healing adequately. His left upper extremity is not bothering him at all. His right upper extremity is still sore. All of them are still oozing some mild amount of seropurulent liquid. PFSH All Active Problems (Updated 02/03/24 @ 08:49 by KAYLENE Moore) Opioid use disorder (Chronic) Active intravenous drug use (Chronic) Sepsis (Acute) Cellulitis and abscess of upper extremity (Acute) Social History Smoking/Tobacco Use Status: Current-Occasional Smoking risk assessment performed?: Yes Alcohol Intake: former Drug use: Current Sobriety Substance use type: opiates Housing: homeless Do you feel safe at home: Yes Do you feel safe in your relationship?: Yes Exam Narrative Exam Narrative: Gen: Non-toxic, comfortable and interactive. Neuro: Alert and oriented x3, his upper extremities have intact motor and sensation and also free range of motion. Psych: Cooperative mood and affect. Seemingly good insight and understanding into condition. Chest: Non-labored breathing, no wheezing, no visible shortness of breath. Heart: Regular Extremities: His left upper extremity and his right upper extremity are bandaged. I took these down on both sides. There are multiple sores in the skin that are at various and different stages of healing and inflammation. They have the appearance of boils. The left upper extremity is not tender. There is no induration. There is no cellulitis visible. All of the lesions appear to be in some sort of stage of source control, drainage and healing. The right upper extremity is also not tender and there is no area of fluctuance or induration and nothing appears to be on?drained. He has a superficial/cutaneous, draining boil in the area that he says is bothering him. There is also no swelling or cellulitis on the right arm. Results Last Vital Signs Temp 98.2 F 02/03/24 07:45 Pulse 94 H 02/03/24 07:45 Resp 17 02/03/24 07:45 BP 109/97 H 02/03/24 07:45 Pulse Ox 100 02/03/24 07:45 Labs 02/03/24 06:35 02/03/24 06:35 Labs: Laboratory Results - last 24 hr 02/03/24 06:35 WBC 7.40 RBC 4.55 Hgb 11.8 L Hct 37.2 L MCV 82 MCH 25.9 L MCHC 31.7 L RDW 14.2 H Plt Count 349 MPV 9.8 Immature Gran % 0.7 Neutrophils % 68.1 Lymphocytes % 19.9 Monocytes % 7.0 Eosinophils % 3.6 Basophils % 0.7 Nucleated RBC % 0.0 Absolute Neutrophils 5.04 Absolute Lymphocytes 1.47 Absolute Monocytes 0.52 Absolute Eosinophils 0.27 Absolute Basophils 0.05 Sodium 138 Potassium 4.6 Chloride 105 Carbon Dioxide 26.8 Anion Gap 6.2 BUN 15 Creatinine 0.9 Est GFR (CKD-EPI 2020) 106.67 Glucose 122 H Calcium 8.4 L Magnesium 2.1 Total Bilirubin 0.12 L Conjugated Bilirubin < 0.1 AST 32 ALT 65 H Alkaline Phosphatase 99 Total Protein 8.2 Albumin 2.0 L Random Vancomycin 16.5
[2024-02-03] MEDS: VANCOMYCIN/WATER (PEG) 1.5 GM/300 ML BAG IV (09:29)
--- NOTE | 2024-02-03 10:55 | W.PM.DS.N ---
Date of service: 02/03/24 Time of Service: 10:55 DS: Diagnosis Discharge Diagnosis (1) Cellulitis and abscess of upper extremity: Status: Acute Discharge Plan Disposition Patient Disposition: Home Condition: Improving Discharge Details Reason For Visit: Cellulitis with abscess, Sepsis, IV drug use... 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 The patient presented with sinus tachycardia, bilateral upper extremities with multiple abscesses and excoriations with drainage, cellulitis to the left upper extremity with draining abscesses, right upper extremity with axillary abscess and mid humeral abscess. Workup in the ED showed leukocytosis 18, lactate at 2.0, H&H at 11 and 35, chemistry was unremarkable. Completely VBG's showed no acute findings. Hospitalist was consulted and patient was admitted to the medical surgical floor f in the self by of bilateral upper extremity cellulitis and abscesses. Treatment was initiated with vancomycin in the ED. During the stay the patient continued to receive IV vancomycin. Blood cultures were negative x 48 hours. The patient clinically improved. Wound cultures showed Staphylococcus aureus; no known MRSA as lab. Also showed read of gram-negative rods. Surgery was consulted and did not recommend any surgical intervention as the abscesses were superficial. Surgery recommended for the patient to stop injections in his arms and self- draining/self incising the abscesses. The patient was transition to oral antibiotics and will have to continue the course abdominal patient. The patient will be discharged to day and will need to follow-up with his primary care practitioner within 7 days of discharge. Community resources were provided to the patient for his homeless status and for for his goal to stop using IV fentanyl and street drugs. The patient also met with a basketball coach.The patient received IV hydromorphone and will be discharge with cephalexin oral, 6 doses of PRN tramadol 50 mg, scheduled acetaminophen for 3 days and a PRN ibuprofen order. Discussed with Dr. Navarrete Home Meds and New Rx's Prescriptions: New cephalexin 500 mg Capsule 500 mg PO QID Qty: 32 0RF acetaminophen 325 mg Tablet 650 mg PO Q6H Qty: 24 0RF ibuprofen 400 mg Tablet 400 mg PO Q6H Qty: 12 0RF tramadol 50 mg Tablet 50 mg PO Q12H PRNQty: 6 0RF Discharge Instructions Stand Alone Forms: Nursing Discharge Form Referrals: BRETT MARTÍNEZ NP [ NON-[facility] STAFF PHYSICIAN] - 02/04/24 2:15 pm () Activity:: Of Equipment/Supplies:: No Equipment Needed Diet:: As Tolerated DS: Summary Time Spent with Patient providing and/or coordinating discharge services: Greater than 30 minutes Status at Discharge Functional status at discharge: independent ambulation Overall status at discharge: patient is progressing back to baseline Mental Status: mental status grossly normal Speech and Movement: speech and movement normal Mood: congruent mood Affect: normal affect Quality:SDOH Health Related Social Needs: Health related social needs inadequate housing(Z59.1), housing instability, housed, with risk of homelessness(Z59.811), food insecurity(Z59.41), transportation insecurity(Z59.82), material hardship(utilities)(Z59.87) Exam Narrative Exam Narrative: Constitutional The patient in bed without acute distress HENMT: Facial structures with normal appearance Neuro:alert and oriented X4 t w/o neurological focal deficit Resp: Normal respiratory pattern, speaks in full sentences, unlabored breathing, clear lung bilaterally Cardio: regular rhythm, S1, S2, no murmur, positive pulses to all 4 ext GI: Abdomen is not distended, soft and non tender, bowel sounds are present Integumentary: drying skin lesions to both upper arms/ axillary region with minimal drainage and surrounding erythema Extremities: strength 5/5 to bilateral lower and upper extremities Psych: RASS 0, congruent mood and normal affect. Psych Mental Status: mental status grossly normal Speech and Movement: speech and movement normal Mood: congruent mood Affect: normal affect DS: Data Vitals/I&O Vitals and I&O: Vital Signs Temperature 36.8 C 02/03/24 07:45 Temperature Source Tympanic 02/03/24 07:45 Pulse 94 H 02/03/24 07:45 Pulse Rhythm Irregular 01/31/24 23:57 Respiratory Rate 17 02/03/24 07:45 Respiratory Effort Normal, Non-Labored 01/31/24 23:57 Respiratory Depth Normal 01/31/24 23:57 Respiratory Pattern Normal 01/31/24 23:57 Blood Pressure 109/97 H 02/03/24 07:45 Blood Pressure Mean 96 01/31/24 23:13 Pulse Oximetry 100 02/03/24 07:45 Oxygen Delivery Method Room Air 02/03/24 03:11 Oxygen Flow Rate 0 02/03/24 03:11 Pain Level 7 02/03/24 05:52 Intake & Output 02/02/24 02/02/24 02/03/24 11:59 23:59 11:59 Intake Total 420 / 1770 1350 / 1770 220 / 220 Balance 420 / 1770 1350 / 1770 220 / 220 Weight 61.1 kg 59.647 kg Intake: IV 630 / 630 Oral 420 / 1140 720 / 1140 220 / 220 Other: Comment independent voids [id number] in toilet Data Completed and Pending Labs on day of discharge: Labs from last 24 hours 02/03/24 06:35 WBC 7.40 RBC 4.55 Hgb 11.8 L Hct 37.2 L MCV 82 MCH 25.9 L MCHC 31.7 L RDW 14.2 H Plt Count 349 MPV 9.8 Immature Gran % 0.7 Neutrophils % 68.1 Lymphocytes % 19.9 Monocytes % 7.0 Eosinophils % 3.6 Basophils % 0.7 Nucleated RBC % 0.0 Absolute Neutrophils 5.04 Absolute Lymphocytes 1.47 Absolute Monocytes 0.52 Absolute Eosinophils 0.27 Absolute Basophils 0.05 Sodium 138 Potassium 4.6 Chloride 105 Carbon Dioxide 26.8 Anion Gap 6.2 BUN 15 Creatinine 0.9 Est GFR (CKD-EPI 2020) 106.67 Glucose 122 H Calcium 8.4 L Magnesium 2.1 Total Bilirubin 0.12 L Conjugated Bilirubin < 0.1 AST 32 ALT 65 H Alkaline Phosphatase 99 Total Protein 8.2 Albumin 2.0 L Random Vancomycin 16.5 Preliminary micro results at discharge 01/31/24 21:44 Wound Culture - Preliminary Arm - Right Upper Gram Positive Missy Gram Negative Edwin Staphylococcus Aureus Gram Negative Edwin#2 01/31/24 22:20 Blood Culture - Preliminary Blood NO GROWTH 48 HOURS 01/31/24 21:53 Blood Culture - Preliminary Blood NO GROWTH 48 HOURS PFSH All Active Problems (Updated 02/03/24 @ 08:49 by Alyssia Francoise, PA) Opioid use disorder (Chronic) Active intravenous drug use (Chronic) Sepsis (Acute) Cellulitis and abscess of upper extremity (Acute) Social History Smoking/Tobacco Use Status: Current-Occasional Smoking risk assessment performed?: Yes Alcohol Intake: former Drug use: Current Sobriety Substance use type: opiates Housing: homeless Do you feel safe at home: Yes Do you feel safe in your relationship?: Yes Time Spent with Patient Time Spent with Patient: 70-84 minutes4 Time was spent: preparing to see the patient(eg.review tests), obtaining and/or reviewing separately otained hiistory, ordering medications,tests, procedures, referring, communicating with other health home care provider, indepentently interpreting results, counseling the patient and care coordination
[2024-02-03 11:22] VITALS: BP 132/89; PULSE 88; RESP 17; TEMP 36.8; O2SAT 99
[2024-02-03 12:02] LABS: HIV-1/2 Ag & Ab Screen Negative (Negative)
[2024-02-03] MEDS: Hyaluronidase 150 UNITS VIAL IJ (12:07)
[2024-02-03 12:43] LABS: MRSA PCR Negative (Negative)
[2024-02-03 13:36] LABS: Hepatitis A Antibody IgM Negative (Negative); Hepatitis B Core Antibody Negative (Negative); Hepatitis B surface Ag Negative (Negative); Hepatitis C Ab w Rflx HCV PCR Reactive (Negative)
--- NOTE | 2024-02-03 14:46 | PDOC.CMDIS ---
Date of service: 02/03/24 Time of Service: 14:47 LACE Index Scoring Tool Questions: Length of Stay (in days): 3 Was the patient admitted via the E.D.?: Yes E.D. Visits: 2 Answers: Total Score: 8 Risk of Readmission: Low Risk Care Management Discharge Plan Reason for Hospitalization: cellulitis Discharge Plan: Misha will be discharged back to the community. He was offered contact information for the [facility] but declined the offer. He stated he does not want to be in [facility]. Misha was provided with contact info for [facility]. CM sent a referral to [employer] for insurance, a PCP, possible food resources and financial assistance. He received a call this afternoon from [employer] to begin the process. If Misha identifies a place where he can stay, CM will attempt top coordinate transportation with [facility]. Patient/Family Education Needs: Review of discharge instructions, limitations, follow up plan and discuss Ask Me Three. SDOH Health Related Social Needs: No Data to Display Health related social needs: inadequate housing(Z59.1), housing instability, housed, with risk of homelessness(Z59.811), food insecurity(Z59.41), transportation insecurity(Z59.82) and material hardship(utilities)(Z59.87) Care Management Referrals: [facility] Referral for Financial Health Care Support: Financial Assistance
[2024-02-03] MEDS: Acetaminophen 325 MG TAB PO (15:01)
[2024-02-03 15:28] VITALS: BP 149/92; PULSE 83; RESP 19; TEMP 37.4; O2SAT 99
[2024-02-03] MEDS: traMADol 50 MG TAB PO (15:54)
[2024-02-03] MEDS: Ibuprofen 400 MG TAB PO (15:55)
[2024-02-03] MEDS: Cephalexin 500 MG CAP PO (16:07)
[2024-02-04 09:17] LABS: Xylazine, Confirmation Urine 571 ng/mL (<50)
[2024-02-05 16:51] LABS: HCV RNA Qualitative Detected (Undetected)
[2024-02-06 12:22] LABS: Buprenorphine Negative ng/mL (Cutoff: 5.0); Norbuprenorphine Negative ng/mL (Cutoff: 2.5)
== END 2024-02-03 18:20 | disposition home or self-care (01) | DRG 872 ==
LOC: ER 23:21 → MS 23:42
PROVIDERS: Nurse Practitioner Acute Care; Nurse Practitioner Family; Admitting Provider Family Medicine; Emergency Provider Physician Assistant; Visit Provider Family Medicine
DX: L03.113 Cellulitis of right upper limb (principal); L03.114 Cellulitis of left upper limb; A41.9 Sepsis, unspecified organism; L02.411 Cutaneous abscess of right axilla; Z59.02 Unsheltered homelessness; L02.412 Cutaneous abscess of left axilla; L02.414 Cutaneous abscess of left upper limb; F11.10 Opioid abuse, uncomplicated; F17.210 Nicotine dependence, cigarettes, uncomplicated; B95.61 Methicillin susceptible Staphylococcus aureus infection as the cause of diseases classified elsewhere; Z59.41 Food insecurity; Z59.82 Transportation insecurity; Z59.87 Material hardship due to limited financial resources, not elsewhere classified
CPT/HCPCS: 00123; 10060; 36415; 80048; 80053; 80076; 80307; 80348; 80375; 85027; 85652; 86704; 86709; 86803; 87040; 87077; 87340; 87389; 87522; 87635; 87641; 96365; 96375; 99221; 99285; 71046; 73060; 80202; 80320; 81003; 81015; 83605; 83735; 85025; 85610; 86140; 87070; 87186; 87205; 99223; 99231; 99232; 99239; J1171; J1885; J2003; J3010; J3370; J3372; J3470